=== PATIENT | female | born 1950 | race Caucasian/White ===

== ENCOUNTER 2021-02-01 22:15 | Inpatient (IN) | payer MEDICARE, OTHER ==
[~2021-02-01] VITALS: Ht 165.1 cm; Wt 102.7 kg
[2021-02-02] VITALS (49 sets, daily range): BP systolic 93–158; BP diastolic 42–92
[2021-02-02] MEDS ORDERED: PIPERACILLIN/TAZOBACTAM SOD 4.5 GM in D5W MINI-BAG PLUS 50 ML IV SCH (02:00)
[2021-02-02] MEDS ORDERED: NALOXONE INJ 0.4MG/1ML VIAL (J2310 PER 1MG) IV STA (02:49)
[2021-02-02 02:52] LABS: HEMATOCRIT 45.1 % (36.0-47.0); HEMOGLOBIN 13.9 g/dl (12.0-15.5); MEAN CORPUSCULAR HEMOGLOBIN 23.1 pg (27.0-33.0); MEAN CORPUSCULAR HGB CONC 30.8 g/dl (32.0-36.5); MEAN CORPUSCULAR VOLUME 74.9 fl (80.0-96.0); PLATELET COUNT, AUTOMATED 128 10^3/uL (150-450); RED BLOOD COUNT 6.02 10^6/uL (4.00-5.40); WHITE BLOOD COUNT 34.2 10^3/uL (4.0-10.0)
[2021-02-02] MEDS ORDERED: DICL75TA PO (02:57)
[2021-02-02] MEDS ORDERED: ZOLO100T PO (02:57)
[2021-02-02] MEDS ORDERED: TREL1AER INH (02:57)
[2021-02-02] MEDS ORDERED: IPRA0.00 INH (02:57)
[2021-02-02] MEDS ORDERED: MONT10TA97 PO (02:57)
[2021-02-02] MEDS ORDERED: CARV6.25 PO (02:57)
[2021-02-02] MEDS ORDERED: PREG50CA PO (02:57)
[2021-02-02] MEDS ORDERED: HYDR-4514 PO (02:57)
[2021-02-02 03:18] LABS: ALBUMIN 1.8 GM/DL (3.2-5.2); BILIRUBIN,TOTAL 1.1 MG/DL (0.2-1.0); CALCIUM LEVEL 7.6 MG/DL (8.8-10.2); CREATININE FOR GFR 1.24 MG/DL (0.55-1.30); GLOMERULAR FILTRATION RATE 45.4 (>39); POTASSIUM SERUM 3.5 MEQ/L (3.5-5.1); TOTAL PROTEIN 6.6 GM/DL (6.4-8.2)
[2021-02-02] MEDS: PIPERACILLIN/TAZOBACTAM SOD 4.5 GM in D5W MINI-BAG PLUS 50 ML IV SCH ×4 (03:34→21:38)
[2021-02-02] MEDS: VANCOMYCIN HCL 1,000 MG, VIAL MATE ADAPTER 1 EACH in NS 250 ML IV SCH ×2 (05:10→19:11)
[2021-02-02] MEDS: HEPARIN SOD (PORCINE) 5000UNITS/ML 1ML VIAL/SYRINGE SC SCH ×2 (05:14→14:00)
[2021-02-02] MEDS ORDERED: PHENYLEPHRINE 10MG/ML 1ML VIAL (J2370 PER 1) As Ordered ONE (07:21)
[2021-02-02] MEDS ORDERED: PHENYLephrine 500MCG 5ML (100MCG/ML) SYRINGE As Ordered ONE (07:21)
[2021-02-02] MEDS ORDERED: SODIUM CHLORIDE 0.9% 1000ML IV SCH (07:35)
[2021-02-02] MEDS ORDERED: ONDANSETRON 4MG/2ML VIAL As Ordered ONE (07:37)
[2021-02-02] MEDS ORDERED: propofoL 200 MG/20 ML VIAL As Ordered ONE (07:37)
[2021-02-02] MEDS ORDERED: ROCURONIUM BROMIDE 50 MG/5 ML VIAL As Ordered ONE (07:37)
[2021-02-02] MEDS ORDERED: ETOMIDATE INJ 20MG/10ML VIAL As Ordered ONE ×2 (07:37→11:36)
[2021-02-02] MEDS ORDERED: VASOPRESSIN INJ 20 UNITS/ML VIAL As Ordered ONE ×2 (07:37→12:32)
[2021-02-02] MEDS ORDERED: ePHEDrine SULFATE 25 MG/5 ML(5MG/ML) SYRINGE As Ordered ONE (07:43)
[2021-02-02] MEDS ORDERED: ESMOLOL INJ 100MG/10ML VIAL As Ordered ONE ×2 (07:59→09:39)
[2021-02-02] MEDS ORDERED: fentaNYL 100 MCG/2 ML INJECTION (J3010) As Ordered ONE (08:31)
[2021-02-02] MEDS ORDERED: MED NOTE (08:45)
[2021-02-02] MEDS ORDERED: HOME MED LIST COMPLETE! XX SCH (08:50)
[2021-02-02] MEDS ORDERED: SUGAMMADEX SODIUM 500 MG/5 ML VIAL (BRIDION) As Ordered ONE (08:50)
[2021-02-02] MEDS: CHLORHEXIDINE GLUCONATE 0.12 % 15ML UDC (PERIDEX ORAL RINSE) MT SCH ×2 (09:00→20:38)
[2021-02-02] MEDS ORDERED: NS 1,000 ML IV SCH (09:30)
[2021-02-02] MEDS ORDERED: MORPHINE 2 MG/ML 1ML VIAL (J2270) IV PRN (09:30)
[2021-02-02] MEDS: ESMOLOL INJ 100MG/10ML VIAL IV PRN ×4 (09:45→10:28)
[2021-02-02] MEDS ORDERED: ONDANSETRON 4MG/2ML VIAL IV PRN (09:50)
[2021-02-02] MEDS ORDERED: LR 1,000 ML IV SCH (09:50)
[2021-02-02] MEDS ORDERED: LEVALBUTEROL 1.25 MG/0.5 ML CONCENTRATE NEB INH ONE (09:55)
[2021-02-02] MEDS: fentaNYL 100 MCG/2 ML INJECTION (J3010) IV PRN ×9 (10:00→23:39)
[2021-02-02] MEDS: PHENYLephrine 500MCG 5ML (100MCG/ML) SYRINGE IV PRN ×2 (10:02→10:07)
[2021-02-02] MEDS ORDERED: PHENYLEPHRINE HCL INJ 10 MG in D5W 99 ML IV SCH (10:35)
[2021-02-02] MEDS ORDERED: SODIUM BICARBONATE 8.4% INJ 50 ML SYRINGE As Ordered ONE (11:35)
[2021-02-02] MEDS ORDERED: NOREPINEPHRINE 4 MG/4 ML AMP As Ordered ONE (11:50)
[2021-02-02] MEDS ORDERED: MIDAZOLAM INJ 2MG/2ML VIAL (J2250 PER 1MG) As Ordered ONE (12:03)
[2021-02-02 12:06] LABS: ABG BASE EXCESS -0.4 (-2.0-2.0); ABG HCO3 25.7 MEQ/L (22.0-26.0); ABG O2 SATURATION 99.3 % (95.0-99.0); ABG PARTIAL PRESSURE CO2 48.2 mmHg (35.0-45.0); ABG PARTIAL PRESSURE O2 239.3 mmHg (75.0-100.0); ABG STANDARD HCO3 24.2 MEQ/L (22.0-26.0); ABG TOTAL CO2 27.1 MEQ/L (23.0-31.0); ABG pH (ARTERIAL) 7.344 UNITS (7.350-7.450)
[2021-02-02] MEDS ORDERED: SODIUM BICARBONATE 8.4% INJ 50 ML SYRINGE IV ONE (12:10)
[2021-02-02] MEDS ORDERED: NOREPINEPHRINE BITARTRATE 8 MG in D5W 492 ML IV SCH (12:15)
[2021-02-02] MEDS ORDERED: SUCCINYLCHOLINE 100 MG/5 ML SYRINGE (J0330) IV ONE (12:15)
[2021-02-02] MEDS ORDERED: MIDAZOLAM INJ 2MG/2ML VIAL (J2250 PER 1MG) IV ONE ×2 (12:15→12:50)
[2021-02-02] MEDS ORDERED: ETOMIDATE INJ 20MG/10ML VIAL IV ONE (12:15)
[2021-02-02 12:45] LABS: HEMATOCRIT 34.3 % (36.0-47.0); MEAN CORPUSCULAR HEMOGLOBIN 23.4 pg (27.0-33.0); MEAN CORPUSCULAR HGB CONC 31.2 g/dl (32.0-36.5); MEAN CORPUSCULAR VOLUME 75.1 fl (80.0-96.0); PLATELET COUNT, AUTOMATED 166 10^3/uL (150-450); RED BLOOD COUNT 4.57 10^6/uL (4.00-5.40)
[2021-02-02 12:46] LABS: HEMOGLOBIN 10.7 g/dl (12.0-15.5); WHITE BLOOD COUNT 41.1 10^3/uL (4.0-10.0)
[2021-02-02] MEDS ORDERED: LACTATED RINGER'S 1000 ML IV ONE (12:55)
[2021-02-02 13:04] LABS: INR 2.58
[2021-02-02 13:16] LABS: ALBUMIN 1.2 GM/DL (3.2-5.2); ANISOCYTOSIS 2+; ATYPICAL LYMPH 4 % (0-5); BILIRUBIN,TOTAL 0.9 MG/DL (0.2-1.0); CALCIUM LEVEL 7.7 MG/DL (8.8-10.2); GLOMERULAR FILTRATION RATE 58.2 (>39); LYMPHOCYTES 8 % (16-44); MICROCYTOSIS 2+; MONOCYTES 7 % (0-5); NEUTROPHILS 78 % (28-66); PLATELET ESTIMATE NORMAL (NORMAL); POLYCHROMASIA 1+; POTASSIUM SERUM 3.7 MEQ/L (3.5-5.1); TOTAL PROTEIN 5.7 GM/DL (6.4-8.2); TOXIC VACUOLATION 1+
[2021-02-02 13:17] LABS: OVALOCYTES 1+; TOXIC GRANULATION 1+
[2021-02-02 13:18] LABS: POIKILOCYTOSIS 1+
[2021-02-02] MEDS: MIDAZOLAM INJ 2MG/2ML VIAL (J2250 PER 1MG) IV PRN ×4 (13:27→17:45)
[2021-02-02] MEDS ORDERED: PHYTONADIONE 5 MG TAB PO ONE (14:15)
[2021-02-02] MEDS ORDERED: propofoL 1,000 MG in IV 1 EA IV SCH (14:15)
[2021-02-02] MEDS: PANTOPRAZOLE 40MG VIAL (C9113 PER 1) IV SCH (14:53)
[2021-02-02 15:30] LABS: MAGNESIUM LEVEL 2.1 MG/DL (1.8-2.4)
[2021-02-02 15:33] LABS: ABG BASE EXCESS -6.6 (-2.0-2.0); ABG HCO3 18.7 MEQ/L (22.0-26.0); ABG O2 SATURATION 99.3 % (95.0-99.0); ABG PARTIAL PRESSURE CO2 36.5 mmHg (35.0-45.0); ABG PARTIAL PRESSURE O2 188.6 mmHg (75.0-100.0); ABG STANDARD HCO3 19.1 MEQ/L (22.0-26.0); ABG TOTAL CO2 19.8 MEQ/L (23.0-31.0); ABG pH (ARTERIAL) 7.328 UNITS (7.350-7.450)
[2021-02-02] MEDS ORDERED: D5W/LR 1,000 ML IV SCH (15:40)
[2021-02-02] MEDS ORDERED: REFRIGERATOR IV KEYS XX PRN (15:40)
[2021-02-02] MEDS ORDERED: AMIODARONE HCL 150 MG in IV 1 EA IV ONE (15:40)
[2021-02-02] MEDS ORDERED: SUCCINYLCHOLINE 100 MG/5 ML SYRINGE (J0330) ONE (15:41)
[2021-02-02] MEDS ORDERED: LEVALBUTEROL 1.25 MG/0.5 ML CONCENTRATE NEB ONE (15:41)
[2021-02-02] MEDS ORDERED: PHENYLEPHRINE 10MG/ML 1ML VIAL (J2370 PER 1) ONE (15:41)
[2021-02-02] MEDS ORDERED: PHENYLephrine 500MCG 5ML (100MCG/ML) SYRINGE ONE (15:41)
[2021-02-02] MEDS ORDERED: AMIODARONE HCL 360 MG in IV 1 EA IV SCH (16:00)
[2021-02-02] MEDS: MIDAZOLAM HCL 100 MG in D5W 80 ML IV SCH (17:03)
[2021-02-02] MEDS: D5W/0.45% SODIUM CHLORIDE 1,000 ML IV SCH (17:34)
[2021-02-02] MEDS ORDERED: POTASSIUM CHLORIDE 10% LIQ 20 MEQ/15 ML UDC PO ONE (19:55)
[2021-02-02] MEDS: VASOPRESSIN INJ 20 UNITS in NS 499 ML IV SCH (20:38)
[2021-02-02] MEDS: NOREPINEPHRINE BITARTRATE 8 MG in D5W 492 ML IV SCH (21:35)
[2021-02-02] MEDS: AMIODARONE HCL 360 MG in IV 1 EA IV SCH (23:31)
[2021-02-03] VITALS (96 sets, daily range): BP systolic 126–167; BP diastolic 35–59
[2021-02-03] MEDS: LEVALBUTEROL HFA 45MCG/ACT 15 GM INHALER INH SCH ×4 (03:05→20:04)
[2021-02-03] MEDS: PIPERACILLIN/TAZOBACTAM SOD 4.5 GM in D5W MINI-BAG PLUS 50 ML IV SCH ×4 (03:14→22:28)
[2021-02-03] MEDS: MIDAZOLAM HCL 100 MG in D5W 80 ML IV SCH ×2 (03:34→18:26)
[2021-02-03] MEDS: NOREPINEPHRINE BITARTRATE 8 MG in D5W 492 ML IV SCH ×6 (04:10→17:25)
[2021-02-03] MEDS: VASOPRESSIN INJ 20 UNITS in NS 499 ML IV SCH ×3 (04:11→19:39)
[2021-02-03 04:19] LABS: BASO # 0.1 10^3/uL (0.0-0.2); BASO % 0.3 % (0.0-1.0); EOS # 0.1 10^3/uL (0.0-0.5); EOS % 0.1 % (0.0-3.0); HEMATOCRIT 32.1 % (36.0-47.0); HEMOGLOBIN 10.2 g/dl (12.0-15.5); LYMPH # 3.4 10^3/uL (1.5-5.0); LYMPH % 9.7 % (24.0-44.0); MEAN CORPUSCULAR HEMOGLOBIN 23.6 pg (27.0-33.0); MEAN CORPUSCULAR HGB CONC 31.8 g/dl (32.0-36.5); MEAN CORPUSCULAR VOLUME 74.1 fl (80.0-96.0); MONO # 1.2 10^3/uL (0.0-0.8); MONO % 3.3 % (2.0-8.0); NEUTROPHILS # 29.4 10^3/uL (1.5-8.5); NEUTROPHILS % 83.7 % (36.0-66.0); PLATELET COUNT, AUTOMATED 184 10^3/uL (150-450); RED BLOOD COUNT 4.33 10^6/uL (4.00-5.40)
[2021-02-03 04:25] LABS: WHITE BLOOD COUNT 35.2 10^3/uL (4.0-10.0)
[2021-02-03] MEDS: fentaNYL 100 MCG/2 ML INJECTION (J3010) IV PRN ×2 (04:27→19:08)
[2021-02-03 04:29] LABS: INR 1.65; PROTHROMBIN TIME 19.9 SECONDS (12.7-14.5)
[2021-02-03 04:38] LABS: CALCIUM LEVEL 6.7 MG/DL (8.8-10.2); CREATININE FOR GFR 1.1 MG/DL (0.55-1.30); GLOMERULAR FILTRATION RATE 52.1 (>39); POTASSIUM SERUM 3.7 MEQ/L (3.5-5.1)
[2021-02-03] MEDS: VANCOMYCIN HCL 1,000 MG, VIAL MATE ADAPTER 1 EACH in NS 250 ML IV SCH ×2 (05:46→18:26)
[2021-02-03] MEDS: HumaLOG INSULIN (NovoLOG) PER UNIT SC SCH ×3 (06:00→17:32)
[2021-02-03 06:41] LABS: ABG BASE EXCESS -3.5 (-2.0-2.0); ABG HCO3 21.3 MEQ/L (22.0-26.0); ABG PARTIAL PRESSURE CO2 37.5 mmHg (35.0-45.0); ABG PARTIAL PRESSURE O2 147.7 mmHg (75.0-100.0); ABG STANDARD HCO3 21.6 MEQ/L (22.0-26.0); ABG TOTAL CO2 22.4 MEQ/L (23.0-31.0); ABG pH (ARTERIAL) 7.372 UNITS (7.350-7.450)
[2021-02-03] MEDS: PANTOPRAZOLE 40MG VIAL (C9113 PER 1) IV SCH (08:46)
[2021-02-03] MEDS: CHLORHEXIDINE GLUCONATE 0.12 % 15ML UDC (PERIDEX ORAL RINSE) MT SCH ×2 (08:46→22:28)
[2021-02-03] MEDS ORDERED: GLUCOSE 4GM CHEW TABLET PO PRN (08:50)
[2021-02-03] MEDS ORDERED: GLUCAGON INJ 1MG VIAL SC PRN (08:50)
[2021-02-03] MEDS ORDERED: DEXTROSE 50% 50 ML SYRINGE IV PRN (08:50)
[2021-02-03] MEDS: AMIODARONE HCL 360 MG in IV 1 EA IV SCH (10:09)
[2021-02-03] MEDS: CLINDAMYCIN 900 MG in IV 1 EA IV SCH ×2 (11:42→18:33)
[2021-02-03] MEDS ORDERED: PHYTONADIONE 5 MG TAB PO ONE (12:30)
[2021-02-03] MEDS: HEPARIN SOD (PORCINE) 5000UNITS/ML 1ML VIAL/SYRINGE SC SCH ×2 (14:09→22:28)
[2021-02-03] MEDS: D5W/0.45% SODIUM CHLORIDE 1,000 ML IV SCH (17:27)
[2021-02-04] VITALS (54 sets, daily range): BP systolic 112–168; BP diastolic 40–76
[2021-02-04] MEDS: NOREPINEPHRINE BITARTRATE 8 MG in D5W 492 ML IV SCH ×3 (01:10→18:35)
[2021-02-04] MEDS: LEVALBUTEROL HFA 45MCG/ACT 15 GM INHALER INH SCH ×4 (01:17→19:26)
[2021-02-04] MEDS: CLINDAMYCIN 900 MG in IV 1 EA IV SCH ×3 (03:28→18:34)
[2021-02-04] MEDS: VASOPRESSIN INJ 20 UNITS in NS 499 ML IV SCH ×3 (03:28→18:37)
[2021-02-04] MEDS: PIPERACILLIN/TAZOBACTAM SOD 4.5 GM in D5W MINI-BAG PLUS 50 ML IV SCH ×4 (04:53→21:07)
[2021-02-04 05:32] LABS: ABG BASE EXCESS -4.1 (-2.0-2.0); ABG HCO3 19.6 MEQ/L (22.0-26.0); ABG O2 SATURATION 97.8 % (95.0-99.0); ABG PARTIAL PRESSURE CO2 31.1 mmHg (35.0-45.0); ABG PARTIAL PRESSURE O2 100.3 mmHg (75.0-100.0); ABG STANDARD HCO3 21.1 MEQ/L (22.0-26.0); ABG TOTAL CO2 20.6 MEQ/L (23.0-31.0); ABG pH (ARTERIAL) 7.418 UNITS (7.350-7.450); BASO # 0.1 10^3/uL (0.0-0.2); BASO % 0.3 % (0.0-1.0); EOS # 0.1 10^3/uL (0.0-0.5); EOS % 0.2 % (0.0-3.0); HEMATOCRIT 29.1 % (36.0-47.0); LYMPH # 3.4 10^3/uL (1.5-5.0); LYMPH % 9.4 % (24.0-44.0); MEAN CORPUSCULAR HEMOGLOBIN 23.3 pg (27.0-33.0); MEAN CORPUSCULAR HGB CONC 30.9 g/dl (32.0-36.5); MEAN CORPUSCULAR VOLUME 75.4 fl (80.0-96.0); MONO % 2.8 % (2.0-8.0); NEUTROPHILS # 30.6 10^3/uL (1.5-8.5); NEUTROPHILS % 84.5 % (36.0-66.0); PLATELET COUNT, AUTOMATED 144 10^3/uL (150-450); RED BLOOD COUNT 3.86 10^6/uL (4.00-5.40)
[2021-02-04 05:36] LABS: WHITE BLOOD COUNT 36.2 10^3/uL (4.0-10.0)
[2021-02-04 05:54] LABS: CALCIUM LEVEL 6.3 MG/DL (8.8-10.2); CREATININE FOR GFR 1.01 MG/DL (0.55-1.30); GLOMERULAR FILTRATION RATE 57.5 (>39); POTASSIUM SERUM 3.3 MEQ/L (3.5-5.1)
[2021-02-04] MEDS: HumaLOG INSULIN (NovoLOG) PER UNIT SC SCH ×5 (06:00→23:52)
[2021-02-04] MEDS: VANCOMYCIN HCL 1,000 MG, VIAL MATE ADAPTER 1 EACH in NS 250 ML IV SCH (06:20)
[2021-02-04] MEDS: HEPARIN SOD (PORCINE) 5000UNITS/ML 1ML VIAL/SYRINGE SC SCH ×3 (06:20→21:08)
[2021-02-04] MEDS: PANTOPRAZOLE 40MG VIAL (C9113 PER 1) IV SCH (09:50)
[2021-02-04] MEDS: CHLORHEXIDINE GLUCONATE 0.12 % 15ML UDC (PERIDEX ORAL RINSE) MT SCH ×2 (09:50→21:07)
[2021-02-04] MEDS: KCL 20MEQ IN 100ML SWI (KRUN) 20 MEQ in IV 1 EA IV SCH ×4 (09:52→11:38)
[2021-02-04] MEDS: fentaNYL 100 MCG/2 ML INJECTION (J3010) IV PRN (09:52)
[2021-02-04 11:17] LABS: CLOSTRIDIUM DIFFICILE PCR NEGATIVE (NEGATIVE)
[2021-02-04 12:16] LABS: ABG BASE EXCESS -2.7 (-2.0-2.0); ABG HCO3 20.9 MEQ/L (22.0-26.0); ABG O2 SATURATION 98.4 % (95.0-99.0); ABG PARTIAL PRESSURE CO2 31.5 mmHg (35.0-45.0); ABG PARTIAL PRESSURE O2 115.3 mmHg (75.0-100.0); ABG STANDARD HCO3 22.2 MEQ/L (22.0-26.0); ABG TOTAL CO2 21.9 MEQ/L (23.0-31.0)
[2021-02-04] MEDS ORDERED: MIDAZOLAM INJ 2MG/2ML VIAL (J2250 PER 1MG) IV ONE (12:45)
[2021-02-04] MEDS ORDERED: fentaNYL 100 MCG/2 ML INJECTION (J3010) IV ONE (12:45)
[2021-02-04] MEDS ORDERED: LACTATED RINGER'S 1000 ML IV ONE (14:00)
[2021-02-04] MEDS ORDERED: ISOVUE-370 76% 100ML VIAL As Ordered ONE (15:39)
[2021-02-05] VITALS (56 sets, daily range): BP systolic 117–145; BP diastolic 41–54
[2021-02-05] MEDS: NOREPINEPHRINE BITARTRATE 8 MG in D5W 492 ML IV SCH ×3 (01:24→18:00)
[2021-02-05] MEDS: LEVALBUTEROL HFA 45MCG/ACT 15 GM INHALER INH SCH ×4 (01:25→19:44)
[2021-02-05] MEDS: VASOPRESSIN INJ 20 UNITS in NS 499 ML IV SCH ×3 (02:05→17:52)
[2021-02-05] MEDS: CLINDAMYCIN 900 MG in IV 1 EA IV SCH ×3 (02:21→18:17)
[2021-02-05 04:19] LABS: BASO # 0.1 10^3/uL (0.0-0.2); BASO % 0.2 % (0.0-1.0); EOS # 0.2 10^3/uL (0.0-0.5); EOS % 0.7 % (0.0-3.0); HEMATOCRIT 25.7 % (36.0-47.0); HEMOGLOBIN 7.9 g/dl (12.0-15.5); LYMPH # 2.4 10^3/uL (1.5-5.0); LYMPH % 8.1 % (24.0-44.0); MEAN CORPUSCULAR HEMOGLOBIN 23.4 pg (27.0-33.0); MEAN CORPUSCULAR HGB CONC 30.7 g/dl (32.0-36.5); MEAN CORPUSCULAR VOLUME 76.3 fl (80.0-96.0); MONO # 0.8 10^3/uL (0.0-0.8); MONO % 2.5 % (2.0-8.0); NEUTROPHILS # 25.8 10^3/uL (1.5-8.5); NEUTROPHILS % 85.7 % (36.0-66.0); PLATELET COUNT, AUTOMATED 121 10^3/uL (150-450); RED BLOOD COUNT 3.37 10^6/uL (4.00-5.40)
[2021-02-05 04:19] LABS: ABG BASE EXCESS -4.4 (-2.0-2.0); ABG HCO3 19.3 MEQ/L (22.0-26.0); ABG O2 SATURATION 98.3 % (95.0-99.0); ABG PARTIAL PRESSURE CO2 30.1 mmHg (35.0-45.0); ABG PARTIAL PRESSURE O2 119.3 mmHg (75.0-100.0); ABG STANDARD HCO3 20.8 MEQ/L (22.0-26.0); ABG TOTAL CO2 20.2 MEQ/L (23.0-31.0); ABG pH (ARTERIAL) 7.425 UNITS (7.350-7.450)
[2021-02-05] MEDS: PIPERACILLIN/TAZOBACTAM SOD 4.5 GM in D5W MINI-BAG PLUS 50 ML IV SCH ×4 (04:21→21:01)
[2021-02-05 04:23] LABS: WHITE BLOOD COUNT 30.1 10^3/uL (4.0-10.0)
[2021-02-05 04:38] LABS: ALBUMIN 1.1 GM/DL (3.2-5.2); ALT/SGPT 16 U/L (12-78); BILIRUBIN,TOTAL 1.1 MG/DL (0.2-1.0); BLOOD UREA NITROGEN 26 MG/DL (7-18); CALCIUM LEVEL 6.4 MG/DL (8.8-10.2); CARBON DIOXIDE LEVEL 24 MEQ/L (21-32); CHLORIDE LEVEL 115 MEQ/L (98-107); CREATININE FOR GFR 0.86 MG/DL (0.55-1.30); GLOMERULAR FILTRATION RATE > 60.0 (>39); GLUCOSE, FASTING 133 MG/DL (70-100); MAGNESIUM LEVEL 1.9 MG/DL (1.8-2.4); PHOSPHORUS LEVEL 2.5 MG/DL (2.5-4.9); POTASSIUM SERUM 3.2 MEQ/L (3.5-5.1); SODIUM LEVEL 146 MEQ/L (136-145); TOTAL PROTEIN 5.2 GM/DL (6.4-8.2)
[2021-02-05] MEDS ORDERED: POTASSIUM CHLORIDE 10% LIQ 20 MEQ/15 ML UDC PO ONE ×2 (05:10→09:00)
[2021-02-05] MEDS: HumaLOG INSULIN (NovoLOG) PER UNIT SC SCH ×4 (06:00→23:33)
[2021-02-05] MEDS: HEPARIN SOD (PORCINE) 5000UNITS/ML 1ML VIAL/SYRINGE SC SCH ×3 (06:01→21:01)
[2021-02-05] MEDS: PANTOPRAZOLE 40MG VIAL (C9113 PER 1) IV SCH (09:44)
[2021-02-05] MEDS: CHLORHEXIDINE GLUCONATE 0.12 % 15ML UDC (PERIDEX ORAL RINSE) MT SCH ×2 (09:44→21:00)
[2021-02-05] MEDS ORDERED: LACTATED RINGER'S 1000 ML IV ONE (10:50)
[2021-02-06] VITALS (59 sets, daily range): BP systolic 106–151; BP diastolic 35–65
[2021-02-06] MEDS: LEVALBUTEROL HFA 45MCG/ACT 15 GM INHALER INH SCH ×4 (01:32→20:03)
[2021-02-06] MEDS: CLINDAMYCIN 900 MG in IV 1 EA IV SCH ×3 (02:20→18:08)
[2021-02-06] MEDS: VASOPRESSIN INJ 20 UNITS in NS 499 ML IV SCH ×3 (02:20→20:20)
[2021-02-06] MEDS: PIPERACILLIN/TAZOBACTAM SOD 4.5 GM in D5W MINI-BAG PLUS 50 ML IV SCH ×4 (03:44→21:12)
[2021-02-06 04:19] LABS: BASO % 0.2 % (0.0-1.0); EOS # 0.2 10^3/uL (0.0-0.5); EOS % 1.1 % (0.0-3.0); HEMATOCRIT 22.5 % (36.0-47.0); LYMPH # 1.6 10^3/uL (1.5-5.0); LYMPH % 7.5 % (24.0-44.0); MEAN CORPUSCULAR HEMOGLOBIN 23.8 pg (27.0-33.0); MEAN CORPUSCULAR HGB CONC 30.7 g/dl (32.0-36.5); MEAN CORPUSCULAR VOLUME 77.6 fl (80.0-96.0); MONO # 0.6 10^3/uL (0.0-0.8); MONO % 2.6 % (2.0-8.0); NEUTROPHILS # 18.5 10^3/uL (1.5-8.5); NEUTROPHILS % 86.6 % (36.0-66.0); PLATELET COUNT, AUTOMATED 114 10^3/uL (150-450); WHITE BLOOD COUNT 21.3 10^3/uL (4.0-10.0)
[2021-02-06 04:20] LABS: HEMOGLOBIN 6.9 g/dl (12.0-15.5)
[2021-02-06 04:35] LABS: ALBUMIN 1.1 GM/DL (3.2-5.2); ALT/SGPT 13 U/L (12-78); BILIRUBIN,TOTAL 0.8 MG/DL (0.2-1.0); BLOOD UREA NITROGEN 18 MG/DL (7-18); CALCIUM LEVEL 6.2 MG/DL (8.8-10.2); CARBON DIOXIDE LEVEL 23 MEQ/L (21-32); CHLORIDE LEVEL 120 MEQ/L (98-107); GLOMERULAR FILTRATION RATE > 60.0 (>39); GLUCOSE, FASTING 134 MG/DL (70-100); MAGNESIUM LEVEL 1.9 MG/DL (1.8-2.4); POTASSIUM SERUM 3.1 MEQ/L (3.5-5.1); SODIUM LEVEL 150 MEQ/L (136-145); TOTAL PROTEIN 5.1 GM/DL (6.4-8.2)
[2021-02-06] MEDS ORDERED: POTASSIUM CHLORIDE 10% LIQ 20 MEQ/15 ML UDC PO ONE ×3 (04:45→17:15)
[2021-02-06] MEDS: ACETAMINOPHEN 325 MG/10.15 ML UDC NG PRN ×3 (05:14→10:08)
[2021-02-06] MEDS: HEPARIN SOD (PORCINE) 5000UNITS/ML 1ML VIAL/SYRINGE SC SCH ×3 (05:14→21:13)
[2021-02-06] MEDS: HumaLOG INSULIN (NovoLOG) PER UNIT SC SCH ×4 (05:16→23:48)
[2021-02-06 05:23] LABS: HEMATOCRIT 22.2 % (36.0-47.0)
[2021-02-06 05:25] LABS: HEMOGLOBIN 6.8 g/dl (12.0-15.5)
[2021-02-06 06:02] LABS: ABG BASE EXCESS -1.7 (-2.0-2.0); ABG HCO3 22.6 MEQ/L (22.0-26.0); ABG PARTIAL PRESSURE CO2 35.5 mmHg (35.0-45.0); ABG PARTIAL PRESSURE O2 139.1 mmHg (75.0-100.0); ABG STANDARD HCO3 23.1 MEQ/L (22.0-26.0); ABG TOTAL CO2 23.7 MEQ/L (23.0-31.0); ABG pH (ARTERIAL) 7.421 UNITS (7.350-7.450)
[2021-02-06] MEDS: SYMBICORT 80/4.5MCG INHALER 6GM INH SCH ×2 (08:00→20:03)
[2021-02-06] MEDS: CHLORHEXIDINE GLUCONATE 0.12 % 15ML UDC (PERIDEX ORAL RINSE) MT SCH ×2 (08:02→21:13)
[2021-02-06] MEDS: PANTOPRAZOLE 40MG VIAL (C9113 PER 1) IV SCH (08:02)
[2021-02-06] MEDS: D5W 1,000 ML IV SCH ×3 (09:14→23:48)
[2021-02-06] MEDS: NOREPINEPHRINE BITARTRATE 8 MG in D5W 492 ML IV SCH (09:39)
[2021-02-06] MEDS: LACRILUBE (AKWA TEARS) OPHTH OINT 3.5 GM OU PRN (12:28)
[2021-02-06 16:56] LABS: BLOOD UREA NITROGEN 15 MG/DL (7-18); CALCIUM LEVEL 6.7 MG/DL (8.8-10.2); CARBON DIOXIDE LEVEL 22 MEQ/L (21-32); CHLORIDE LEVEL 121 MEQ/L (98-107); CREATININE FOR GFR 0.82 MG/DL (0.55-1.30); GLOMERULAR FILTRATION RATE > 60.0 (>39); GLUCOSE, FASTING 151 MG/DL (70-100); POTASSIUM SERUM 3.4 MEQ/L (3.5-5.1); SODIUM LEVEL 150 MEQ/L (136-145)
[2021-02-06] MEDS ORDERED: fentaNYL 100 MCG/2 ML INJECTION (J3010) IV ONE (17:10)
[2021-02-07] VITALS (31 sets, daily range): BP systolic 115–141; BP diastolic 42–52
[2021-02-07] MEDS: LEVALBUTEROL HFA 45MCG/ACT 15 GM INHALER INH SCH ×4 (01:09→20:02)
[2021-02-07] MEDS: CLINDAMYCIN 900 MG in IV 1 EA IV SCH ×2 (02:43→11:22)
[2021-02-07] MEDS: PIPERACILLIN/TAZOBACTAM SOD 4.5 GM in D5W MINI-BAG PLUS 50 ML IV SCH ×4 (03:48→21:15)
[2021-02-07 04:16] LABS: BASO # 0.1 10^3/uL (0.0-0.2); BASO % 0.3 % (0.0-1.0); EOS # 0.3 10^3/uL (0.0-0.5); EOS % 1.5 % (0.0-3.0); HEMOGLOBIN 8.4 g/dl (12.0-15.5); LYMPH # 1.6 10^3/uL (1.5-5.0); LYMPH % 8.1 % (24.0-44.0); MEAN CORPUSCULAR HEMOGLOBIN 25.1 pg (27.0-33.0); MEAN CORPUSCULAR HGB CONC 31.1 g/dl (32.0-36.5); MEAN CORPUSCULAR VOLUME 80.8 fl (80.0-96.0); MONO # 0.6 10^3/uL (0.0-0.8); NEUTROPHILS # 16.9 10^3/uL (1.5-8.5); NEUTROPHILS % 85.6 % (36.0-66.0); PLATELET COUNT, AUTOMATED 154 10^3/uL (150-450); RED BLOOD COUNT 3.34 10^6/uL (4.00-5.40); WHITE BLOOD COUNT 19.7 10^3/uL (4.0-10.0)
[2021-02-07] MEDS: VASOPRESSIN INJ 20 UNITS in NS 499 ML IV SCH (04:40)
[2021-02-07 04:53] LABS: ALBUMIN 1.2 GM/DL (3.2-5.2); ALT/SGPT 12 U/L (12-78); BILIRUBIN,TOTAL 0.7 MG/DL (0.2-1.0); BLOOD UREA NITROGEN 13 MG/DL (7-18); CALCIUM LEVEL 6.6 MG/DL (8.8-10.2); CARBON DIOXIDE LEVEL 23 MEQ/L (21-32); CHLORIDE LEVEL 120 MEQ/L (98-107); CREATININE FOR GFR 0.71 MG/DL (0.55-1.30); GLOMERULAR FILTRATION RATE > 60.0 (>39); GLUCOSE, FASTING 117 MG/DL (70-100); PHOSPHORUS LEVEL 1.8 MG/DL (2.5-4.9); POTASSIUM SERUM 3.9 MEQ/L (3.5-5.1); SODIUM LEVEL 152 MEQ/L (136-145); TOTAL PROTEIN 5.4 GM/DL (6.4-8.2)
[2021-02-07] MEDS: HumaLOG INSULIN (NovoLOG) PER UNIT SC SCH ×4 (05:13→23:44)
[2021-02-07] MEDS: HEPARIN SOD (PORCINE) 5000UNITS/ML 1ML VIAL/SYRINGE SC SCH ×3 (05:13→21:15)
[2021-02-07 05:57] LABS: ABG BASE EXCESS -0.2 (-2.0-2.0); ABG HCO3 23.2 MEQ/L (22.0-26.0); ABG O2 SATURATION 94.6 % (95.0-99.0); ABG PARTIAL PRESSURE CO2 32.8 mmHg (35.0-45.0); ABG PARTIAL PRESSURE O2 69.8 mmHg (75.0-100.0); ABG STANDARD HCO3 24.3 MEQ/L (22.0-26.0); ABG TOTAL CO2 24.2 MEQ/L (23.0-31.0); ABG pH (ARTERIAL) 7.468 UNITS (7.350-7.450)
[2021-02-07] MEDS: SYMBICORT 80/4.5MCG INHALER 6GM INH SCH ×2 (08:20→20:02)
[2021-02-07] MEDS ORDERED: NEUTRA-PHOS 1.5 GM PACKET PO ONE (09:00)
[2021-02-07] MEDS: PANTOPRAZOLE 40MG VIAL (C9113 PER 1) IV SCH (09:54)
[2021-02-07] MEDS: CHLORHEXIDINE GLUCONATE 0.12 % 15ML UDC (PERIDEX ORAL RINSE) MT SCH ×2 (09:54→21:14)
[2021-02-07] MEDS: D5W 1,000 ML IV SCH ×3 (09:54→20:15)
[2021-02-07 17:31] LABS: BLOOD UREA NITROGEN 10 MG/DL (7-18); CALCIUM LEVEL 6.9 MG/DL (8.8-10.2); CARBON DIOXIDE LEVEL 24 MEQ/L (21-32); CHLORIDE LEVEL 116 MEQ/L (98-107); CREATININE FOR GFR 0.69 MG/DL (0.55-1.30); GLOMERULAR FILTRATION RATE > 60.0 (>39); GLUCOSE, FASTING 126 MG/DL (70-100); POTASSIUM SERUM 3.4 MEQ/L (3.5-5.1); SODIUM LEVEL 145 MEQ/L (136-145)
[2021-02-07] MEDS ORDERED: KCL 20MEQ IN 100ML SWI (KRUN) 20 MEQ in IV 1 EA IV ONE ×2 (18:00)
[2021-02-07] MEDS: MIDAZOLAM INJ 2MG/2ML VIAL (J2250 PER 1MG) IV PRN (23:56)
[2021-02-08] VITALS (26 sets, daily range): BP systolic 88–181; BP diastolic 31–70
[2021-02-08] MEDS: IPRATROPIUM 0.5MG/ALBUTEROL 2.5MG INH SOL UD 3ML (DUONEB) NEB PRN ×2 (00:23→08:21)
[2021-02-08] MEDS: MIDAZOLAM INJ 2MG/2ML VIAL (J2250 PER 1MG) IV PRN ×6 (00:34→18:33)
[2021-02-08] MEDS: LEVALBUTEROL HFA 45MCG/ACT 15 GM INHALER INH SCH ×4 (01:15→19:58)
[2021-02-08] MEDS: PIPERACILLIN/TAZOBACTAM SOD 4.5 GM in D5W MINI-BAG PLUS 50 ML IV SCH ×4 (03:32→20:44)
[2021-02-08 05:03] LABS: BASO # 0.1 10^3/uL (0.0-0.2); BASO % 0.3 % (0.0-1.0); EOS # 0.3 10^3/uL (0.0-0.5); EOS % 1.9 % (0.0-3.0); HEMATOCRIT 27.7 % (36.0-47.0); HEMOGLOBIN 8.4 g/dl (12.0-15.5); LYMPH # 1.6 10^3/uL (1.5-5.0); LYMPH % 9.5 % (24.0-44.0); MEAN CORPUSCULAR HGB CONC 30.3 g/dl (32.0-36.5); MEAN CORPUSCULAR VOLUME 82.4 fl (80.0-96.0); MONO # 0.7 10^3/uL (0.0-0.8); MONO % 4.2 % (2.0-8.0); NEUTROPHILS # 13.8 10^3/uL (1.5-8.5); PLATELET COUNT, AUTOMATED 205 10^3/uL (150-450); RED BLOOD COUNT 3.36 10^6/uL (4.00-5.40); WHITE BLOOD COUNT 16.6 10^3/uL (4.0-10.0)
[2021-02-08 05:30] LABS: ALBUMIN 1.1 GM/DL (3.2-5.2); ALT/SGPT 11 U/L (12-78); BILIRUBIN,TOTAL 0.7 MG/DL (0.2-1.0); BLOOD UREA NITROGEN 9 MG/DL (7-18); C REACTIVE PROTEIN QUANTITATIV 3.58 MG/DL (0.00-0.30); CALCIUM LEVEL 6.6 MG/DL (8.8-10.2); CARBON DIOXIDE LEVEL 25 MEQ/L (21-32); CHLORIDE LEVEL 115 MEQ/L (98-107); CREATININE FOR GFR 0.71 MG/DL (0.55-1.30); GLOMERULAR FILTRATION RATE > 60.0 (>39); GLUCOSE, FASTING 107 MG/DL (70-100); MAGNESIUM LEVEL 1.8 MG/DL (1.8-2.4); PHOSPHORUS LEVEL 2.1 MG/DL (2.5-4.9); POTASSIUM SERUM 3.6 MEQ/L (3.5-5.1); SODIUM LEVEL 146 MEQ/L (136-145); TOTAL PROTEIN 5.4 GM/DL (6.4-8.2)
[2021-02-08] MEDS: HEPARIN SOD (PORCINE) 5000UNITS/ML 1ML VIAL/SYRINGE SC SCH ×3 (05:57→20:57)
[2021-02-08] MEDS: HumaLOG INSULIN (NovoLOG) PER UNIT SC SCH ×3 (06:00→18:00)
[2021-02-08 06:20] LABS: ABG BASE EXCESS -0.7 (-2.0-2.0); ABG HCO3 22.6 MEQ/L (22.0-26.0); ABG O2 SATURATION 97.6 % (95.0-99.0); ABG PARTIAL PRESSURE CO2 32.2 mmHg (35.0-45.0); ABG STANDARD HCO3 23.9 MEQ/L (22.0-26.0); ABG TOTAL CO2 23.6 MEQ/L (23.0-31.0); ABG pH (ARTERIAL) 7.464 UNITS (7.350-7.450)
[2021-02-08] MEDS: SYMBICORT 80/4.5MCG INHALER 6GM INH SCH ×2 (08:00→19:57)
[2021-02-08] MEDS ORDERED: fentaNYL 100 MCG/2 ML INJECTION (J3010) IV ONE (08:30)
[2021-02-08] MEDS: CHLORHEXIDINE GLUCONATE 0.12 % 15ML UDC (PERIDEX ORAL RINSE) MT SCH ×2 (08:51→20:57)
[2021-02-08] MEDS: PANTOPRAZOLE 40MG VIAL (C9113 PER 1) IV SCH (08:51)
[2021-02-08] MEDS: D5W 1,000 ML IV SCH ×2 (08:52→16:10)
[2021-02-08] MEDS: fentaNYL 100 MCG/2 ML INJECTION (J3010) IV PRN (08:58)
[2021-02-08] MEDS ORDERED: ROCURONIUM BROMIDE 50 MG/5 ML VIAL As Ordered ONE (13:03)
[2021-02-08] MEDS ORDERED: fentaNYL 100 MCG/2 ML INJECTION (J3010) As Ordered ONE (13:03)
[2021-02-08] MEDS ORDERED: propofoL 200 MG/20 ML VIAL As Ordered ONE (13:03)
[2021-02-08 16:57] LABS: BLOOD UREA NITROGEN 9 MG/DL (7-18); CALCIUM LEVEL 6.9 MG/DL (8.8-10.2); CARBON DIOXIDE LEVEL 25 MEQ/L (21-32); CHLORIDE LEVEL 114 MEQ/L (98-107); CREATININE FOR GFR 0.69 MG/DL (0.55-1.30); GLOMERULAR FILTRATION RATE > 60.0 (>39); GLUCOSE, FASTING 134 MG/DL (70-100); POTASSIUM SERUM 3.5 MEQ/L (3.5-5.1); SODIUM LEVEL 144 MEQ/L (136-145)
[2021-02-08] MEDS ORDERED: LR 500 ML IV ONE (22:20)
[2021-02-09] VITALS (27 sets, daily range): BP systolic 95–163; BP diastolic 39–101
[2021-02-09] MEDS: HumaLOG INSULIN (NovoLOG) PER UNIT SC SCH ×4 (00:05→17:46)
[2021-02-09] MEDS: D5W 1,000 ML IV SCH (00:54)
[2021-02-09] MEDS: MIDAZOLAM INJ 2MG/2ML VIAL (J2250 PER 1MG) IV PRN ×2 (00:54→06:37)
[2021-02-09] MEDS: LEVALBUTEROL HFA 45MCG/ACT 15 GM INHALER INH SCH ×4 (01:01→20:00)
[2021-02-09] MEDS: IPRATROPIUM 0.5MG/ALBUTEROL 2.5MG INH SOL UD 3ML (DUONEB) NEB PRN (01:01)
[2021-02-09] MEDS: PIPERACILLIN/TAZOBACTAM SOD 4.5 GM in D5W MINI-BAG PLUS 50 ML IV SCH ×4 (03:48→22:24)
[2021-02-09 04:57] LABS: BASO % 0.2 % (0.0-1.0); EOS # 0.3 10^3/uL (0.0-0.5); EOS % 2.4 % (0.0-3.0); HEMATOCRIT 26.1 % (36.0-47.0); HEMOGLOBIN 7.8 g/dl (12.0-15.5); LYMPH # 1.4 10^3/uL (1.5-5.0); LYMPH % 11.2 % (24.0-44.0); MEAN CORPUSCULAR HGB CONC 29.9 g/dl (32.0-36.5); MEAN CORPUSCULAR VOLUME 83.7 fl (80.0-96.0); MONO # 0.6 10^3/uL (0.0-0.8); MONO % 4.6 % (2.0-8.0); NEUTROPHILS # 9.9 10^3/uL (1.5-8.5); NEUTROPHILS % 80.8 % (36.0-66.0); PLATELET COUNT, AUTOMATED 265 10^3/uL (150-450); RED BLOOD COUNT 3.12 10^6/uL (4.00-5.40); WHITE BLOOD COUNT 12.3 10^3/uL (4.0-10.0)
[2021-02-09 05:17] LABS: ALBUMIN 1.1 GM/DL (3.2-5.2); ALT/SGPT 11 U/L (12-78); BILIRUBIN,TOTAL 0.5 MG/DL (0.2-1.0); BLOOD UREA NITROGEN 10 MG/DL (7-18); CALCIUM LEVEL 6.5 MG/DL (8.8-10.2); CARBON DIOXIDE LEVEL 24 MEQ/L (21-32); CHLORIDE LEVEL 112 MEQ/L (98-107); CREATININE FOR GFR 0.71 MG/DL (0.55-1.30); GLOMERULAR FILTRATION RATE > 60.0 (>39); GLUCOSE, FASTING 147 MG/DL (70-100); MAGNESIUM LEVEL 1.6 MG/DL (1.8-2.4); PHOSPHORUS LEVEL 1.8 MG/DL (2.5-4.9); POTASSIUM SERUM 3.3 MEQ/L (3.5-5.1); SODIUM LEVEL 142 MEQ/L (136-145); TOTAL PROTEIN 5.1 GM/DL (6.4-8.2)
[2021-02-09] MEDS: HEPARIN SOD (PORCINE) 5000UNITS/ML 1ML VIAL/SYRINGE SC SCH ×3 (05:42→22:24)
[2021-02-09 06:10] LABS: ABG BASE EXCESS -3.8 (-2.0-2.0); ABG HCO3 19.4 MEQ/L (22.0-26.0); ABG O2 SATURATION 97.8 % (95.0-99.0); ABG PARTIAL PRESSURE CO2 28.6 mmHg (35.0-45.0); ABG PARTIAL PRESSURE O2 99.4 mmHg (75.0-100.0); ABG STANDARD HCO3 21.3 MEQ/L (22.0-26.0); ABG TOTAL CO2 20.3 MEQ/L (23.0-31.0)
[2021-02-09] MEDS: SYMBICORT 80/4.5MCG INHALER 6GM INH SCH ×2 (07:22→20:13)
[2021-02-09] MEDS ORDERED: PILL CUTTER 1 EACH XX PRN (08:15)
[2021-02-09] MEDS: CHLORHEXIDINE GLUCONATE 0.12 % 15ML UDC (PERIDEX ORAL RINSE) MT SCH (08:27)
[2021-02-09] MEDS: PANTOPRAZOLE 40MG VIAL (C9113 PER 1) IV SCH (08:28)
[2021-02-09] MEDS ORDERED: FUROSEMIDE 20MG/2ML VIAL (J1940) IV ONE (09:00)
[2021-02-09] MEDS ORDERED: MAG SULF 1GM/100ML (MAG RUN) 1 GM in IV 1 EA IV ONE (09:00)
[2021-02-09] MEDS ORDERED: K-PHOS ORIGINAL (POT.ACID PHOSPHATE) 500MG TAB GT ONE (10:00)
[2021-02-09] MEDS: NYSTATIN 100,000 UNITS/GM TOPICAL PWD 15 GM TOP PRN (12:41)
[2021-02-09] MEDS: ACETAMINOPHEN 325 MG/10.15 ML UDC NG PRN (12:46)
[2021-02-09] MEDS: MORPHINE 2 MG/ML 1ML VIAL (J2270) IV PRN ×2 (15:07→22:40)
[2021-02-09] MEDS: fentaNYL 100 MCG/2 ML INJECTION (J3010) IV PRN (19:47)
[2021-02-10] VITALS (18 sets, daily range): BP systolic 110–153; BP diastolic 53–90
[2021-02-10] MEDS: fentaNYL 100 MCG/2 ML INJECTION (J3010) IV PRN ×3 (00:34→11:34)
[2021-02-10] MEDS: LEVALBUTEROL HFA 45MCG/ACT 15 GM INHALER INH SCH ×4 (01:10→19:39)
[2021-02-10] MEDS: PIPERACILLIN/TAZOBACTAM SOD 4.5 GM in D5W MINI-BAG PLUS 50 ML IV SCH ×4 (03:28→21:01)
[2021-02-10] MEDS: HEPARIN SOD (PORCINE) 5000UNITS/ML 1ML VIAL/SYRINGE SC SCH ×3 (05:17→21:01)
[2021-02-10] MEDS: HumaLOG INSULIN (NovoLOG) PER UNIT SC SCH ×5 (05:17→21:00)
[2021-02-10] MEDS: MORPHINE 2 MG/ML 1ML VIAL (J2270) IV PRN ×5 (05:18→22:28)
[2021-02-10 05:35] LABS: BASO # 0.1 10^3/uL (0.0-0.2); BASO % 0.6 % (0.0-1.0); EOS # 0.3 10^3/uL (0.0-0.5); EOS % 2.9 % (0.0-3.0); HEMATOCRIT 27.6 % (36.0-47.0); HEMOGLOBIN 8.3 g/dl (12.0-15.5); LYMPH # 1.3 10^3/uL (1.5-5.0); LYMPH % 13.3 % (24.0-44.0); MEAN CORPUSCULAR HEMOGLOBIN 24.9 pg (27.0-33.0); MEAN CORPUSCULAR HGB CONC 30.1 g/dl (32.0-36.5); MEAN CORPUSCULAR VOLUME 82.6 fl (80.0-96.0); MONO # 0.7 10^3/uL (0.0-0.8); NEUTROPHILS # 7.6 10^3/uL (1.5-8.5); NEUTROPHILS % 75.7 % (36.0-66.0); PLATELET COUNT, AUTOMATED 298 10^3/uL (150-450); RED BLOOD COUNT 3.34 10^6/uL (4.00-5.40)
[2021-02-10 06:11] LABS: ALBUMIN 1.2 GM/DL (3.2-5.2); ALT/SGPT 11 U/L (12-78); BILIRUBIN,TOTAL 0.4 MG/DL (0.2-1.0); BLOOD UREA NITROGEN 7 MG/DL (7-18); CALCIUM LEVEL 6.9 MG/DL (8.8-10.2); CARBON DIOXIDE LEVEL 27 MEQ/L (21-32); CHLORIDE LEVEL 111 MEQ/L (98-107); CREATININE FOR GFR 0.59 MG/DL (0.55-1.30); GLOMERULAR FILTRATION RATE > 60.0 (>39); GLUCOSE, FASTING 96 MG/DL (70-100); MAGNESIUM LEVEL 1.8 MG/DL (1.8-2.4); PHOSPHORUS LEVEL 2.4 MG/DL (2.5-4.9); POTASSIUM SERUM 3.4 MEQ/L (3.5-5.1); SODIUM LEVEL 144 MEQ/L (136-145); TOTAL PROTEIN 5.4 GM/DL (6.4-8.2)
[2021-02-10] MEDS: SYMBICORT 80/4.5MCG INHALER 6GM INH SCH ×2 (08:07→19:39)
[2021-02-10] MEDS: PANTOPRAZOLE 40MG VIAL (C9113 PER 1) IV SCH (09:21)
[2021-02-10] MEDS ORDERED: POTASSIUM CHLORIDE 10MEQ SR TABLET PO ONE (15:20)
[2021-02-10] MEDS ORDERED: POTASSIUM CHLORIDE 10% LIQ 20 MEQ/15 ML UDC PO ONE (17:20)
[2021-02-10 19:36] LABS: CLOSTRIDIUM DIFFICILE PCR POSITIVE (NEGATIVE)
[2021-02-11] VITALS: BP 119/58
[2021-02-11] MEDS: LEVALBUTEROL HFA 45MCG/ACT 15 GM INHALER INH SCH ×4 (01:08→20:25)
[2021-02-11 04:01] VITALS: BP 111/59
[2021-02-11 04:08] LABS: BASO # 0.1 10^3/uL (0.0-0.2); BASO % 0.9 % (0.0-1.0); EOS # 0.2 10^3/uL (0.0-0.5); EOS % 2.3 % (0.0-3.0); HEMATOCRIT 29.3 % (36.0-47.0); HEMOGLOBIN 8.8 g/dl (12.0-15.5); LYMPH # 1.4 10^3/uL (1.5-5.0); LYMPH % 17.1 % (24.0-44.0); MEAN CORPUSCULAR HEMOGLOBIN 25.1 pg (27.0-33.0); MEAN CORPUSCULAR VOLUME 83.7 fl (80.0-96.0); MONO # 0.6 10^3/uL (0.0-0.8); NEUTROPHILS # 5.8 10^3/uL (1.5-8.5); NEUTROPHILS % 72.2 % (36.0-66.0); PLATELET COUNT, AUTOMATED 345 10^3/uL (150-450)
[2021-02-11] MEDS: PIPERACILLIN/TAZOBACTAM SOD 4.5 GM in D5W MINI-BAG PLUS 50 ML IV SCH ×5 (04:11→21:12)
[2021-02-11] MEDS: HEPARIN SOD (PORCINE) 5000UNITS/ML 1ML VIAL/SYRINGE SC SCH ×2 (06:11→14:47)
[2021-02-11 07:21] LABS: ALBUMIN 1.4 GM/DL (3.2-5.2); ALT/SGPT 12 U/L (12-78); BILIRUBIN,TOTAL 0.4 MG/DL (0.2-1.0); BLOOD UREA NITROGEN 6 MG/DL (7-18); CALCIUM LEVEL 7.6 MG/DL (8.8-10.2); CARBON DIOXIDE LEVEL 25 MEQ/L (21-32); CHLORIDE LEVEL 112 MEQ/L (98-107); CREATININE FOR GFR 0.55 MG/DL (0.55-1.30); GLOMERULAR FILTRATION RATE > 60.0 (>39); GLUCOSE, FASTING 106 MG/DL (70-100); IRON (FE) 20 UG/DL (50-170); MAGNESIUM LEVEL 1.8 MG/DL (1.8-2.4); PHOSPHORUS LEVEL 1.9 MG/DL (2.5-4.9); POTASSIUM SERUM 3.3 MEQ/L (3.5-5.1); SODIUM LEVEL 144 MEQ/L (136-145); TOTAL IRON BINDING CAPACITY 221 UG/DL (250-450); TOTAL PROTEIN 5.8 GM/DL (6.4-8.2)
[2021-02-11] MEDS: HumaLOG INSULIN (NovoLOG) PER UNIT SC SCH ×4 (07:30→21:00)
[2021-02-11 07:58] VITALS: BP 147/77
[2021-02-11] MEDS: SYMBICORT 80/4.5MCG INHALER 6GM INH SCH ×2 (08:18→20:25)
[2021-02-11 08:21] LABS: VITAMIN B12 LEVEL > 2000 PG/ML (247-911)
[2021-02-11 08:22] LABS: FOLATE 6.8 NG/ML (>5.4)
[2021-02-11] MEDS: PANTOPRAZOLE 40MG TAB (PROTONIX) PO SCH (09:00)
[2021-02-11] MEDS ORDERED: POTASSIUM CHLORIDE 10MEQ SR TABLET PO ONE (11:55)
[2021-02-11 12:00] VITALS: BP 112/52
[2021-02-11] MEDS: VANCOMYCIN ORAL SOL 250MG/5ML ORAL SYRINGE PO SCH ×2 (12:11→18:09)
[2021-02-11] MEDS ORDERED: POTASSIUM CHLORIDE 10% LIQ 20 MEQ/15 ML UDC PO ONE (13:00)
[2021-02-11] MEDS ORDERED: LIDOCAINE 1% MDV 20ML VIAL As Ordered ONE (15:28)
[2021-02-11 17:30] VITALS: BP 120/58
[2021-02-11] MEDS: SODIUM CHLORIDE 0.9% INJ 10 ML SYR IV SCH (18:09)
[2021-02-11] MEDS: ENOXAPARIN 120MG/0.8ML SYRINGE (J1650 PER 10MG) SC SCH (18:50)
[2021-02-11 20:00] VITALS: BP 129/68
[2021-02-12] VITALS (7 sets, daily range): BP systolic 129–152; BP diastolic 56–80
[2021-02-12] MEDS: VANCOMYCIN ORAL SOL 250MG/5ML ORAL SYRINGE PO SCH ×4 (00:20→17:11)
[2021-02-12] MEDS: LEVALBUTEROL HFA 45MCG/ACT 15 GM INHALER INH SCH ×4 (01:32→19:20)
[2021-02-12] MEDS: PIPERACILLIN/TAZOBACTAM SOD 4.5 GM in D5W MINI-BAG PLUS 50 ML IV SCH ×4 (04:16→21:17)
[2021-02-12] MEDS: SODIUM CHLORIDE 0.9% INJ 10 ML SYR IV SCH ×2 (06:45→17:11)
[2021-02-12] MEDS: ENOXAPARIN 120MG/0.8ML SYRINGE (J1650 PER 10MG) SC SCH ×2 (06:49→17:20)
[2021-02-12] MEDS: SYMBICORT 80/4.5MCG INHALER 6GM INH SCH ×2 (07:12→19:20)
[2021-02-12] MEDS: HumaLOG INSULIN (NovoLOG) PER UNIT SC SCH ×4 (07:30→21:00)
[2021-02-12] MEDS: PANTOPRAZOLE 40MG TAB (PROTONIX) PO SCH (07:42)
[2021-02-12 08:23] LABS: ALBUMIN 1.5 GM/DL (3.2-5.2); ALT/SGPT 13 U/L (12-78); BILIRUBIN,TOTAL 0.6 MG/DL (0.2-1.0); BLOOD UREA NITROGEN 5 MG/DL (7-18); C REACTIVE PROTEIN QUANTITATIV 2.39 MG/DL (0.00-0.30); CALCIUM LEVEL 7.5 MG/DL (8.8-10.2); CARBON DIOXIDE LEVEL 26 MEQ/L (21-32); CHLORIDE LEVEL 112 MEQ/L (98-107); CREATININE FOR GFR 0.52 MG/DL (0.55-1.30); GLOMERULAR FILTRATION RATE > 60.0 (>39); GLUCOSE, FASTING 105 MG/DL (70-100); POTASSIUM SERUM 3.3 MEQ/L (3.5-5.1); SODIUM LEVEL 144 MEQ/L (136-145); TOTAL PROTEIN 6.1 GM/DL (6.4-8.2)
[2021-02-12 08:53] LABS: BASO # 0.1 10^3/uL (0.0-0.2); BASO % 1.1 % (0.0-1.0); EOS # 0.2 10^3/uL (0.0-0.5); EOS % 2.8 % (0.0-3.0); HEMOGLOBIN 9.2 g/dl (12.0-15.5); LYMPH # 1.6 10^3/uL (1.5-5.0); LYMPH % 19.2 % (24.0-44.0); MEAN CORPUSCULAR HEMOGLOBIN 25.3 pg (27.0-33.0); MEAN CORPUSCULAR HGB CONC 30.7 g/dl (32.0-36.5); MEAN CORPUSCULAR VOLUME 82.6 fl (80.0-96.0); MONO # 0.6 10^3/uL (0.0-0.8); MONO % 7.5 % (2.0-8.0); NEUTROPHILS # 5.9 10^3/uL (1.5-8.5); NEUTROPHILS % 68.7 % (36.0-66.0); PLATELET COUNT, AUTOMATED 348 10^3/uL (150-450); RED BLOOD COUNT 3.63 10^6/uL (4.00-5.40); WHITE BLOOD COUNT 8.6 10^3/uL (4.0-10.0)
[2021-02-12 10:13] LABS: HEMOGLOBIN A1c 5.7 %
[2021-02-12] MEDS ORDERED: POTASSIUM CHLORIDE 10% LIQ 20 MEQ/15 ML UDC PO ONE (12:00)
[2021-02-13 00:15] VITALS: BP 112/51
[2021-02-13] MEDS: VANCOMYCIN ORAL SOL 250MG/5ML ORAL SYRINGE PO SCH ×4 (00:17→17:29)
[2021-02-13] MEDS: LEVALBUTEROL HFA 45MCG/ACT 15 GM INHALER INH SCH ×4 (01:37→19:02)
[2021-02-13 04:05] VITALS: BP 121/56
[2021-02-13] MEDS: PIPERACILLIN/TAZOBACTAM SOD 4.5 GM in D5W MINI-BAG PLUS 50 ML IV SCH ×4 (04:23→22:00)
[2021-02-13] MEDS: ENOXAPARIN 120MG/0.8ML SYRINGE (J1650 PER 10MG) SC SCH ×2 (06:16→17:29)
[2021-02-13] MEDS: SODIUM CHLORIDE 0.9% INJ 10 ML SYR IV SCH ×2 (06:17→17:29)
[2021-02-13 06:32] LABS: BASO # 0.1 10^3/uL (0.0-0.2); EOS # 0.2 10^3/uL (0.0-0.5); EOS % 2.7 % (0.0-3.0); HEMATOCRIT 27.9 % (36.0-47.0); HEMOGLOBIN 8.5 g/dl (12.0-15.5); LYMPH # 1.6 10^3/uL (1.5-5.0); LYMPH % 23.5 % (24.0-44.0); MEAN CORPUSCULAR HEMOGLOBIN 25.1 pg (27.0-33.0); MEAN CORPUSCULAR HGB CONC 30.5 g/dl (32.0-36.5); MEAN CORPUSCULAR VOLUME 82.5 fl (80.0-96.0); MONO # 0.6 10^3/uL (0.0-0.8); MONO % 8.2 % (2.0-8.0); NEUTROPHILS # 4.3 10^3/uL (1.5-8.5); NEUTROPHILS % 64.3 % (36.0-66.0); PLATELET COUNT, AUTOMATED 280 10^3/uL (150-450); RED BLOOD COUNT 3.38 10^6/uL (4.00-5.40); WHITE BLOOD COUNT 6.7 10^3/uL (4.0-10.0)
[2021-02-13] MEDS: SYMBICORT 80/4.5MCG INHALER 6GM INH SCH ×2 (07:07→19:01)
[2021-02-13] MEDS: HumaLOG INSULIN (NovoLOG) PER UNIT SC SCH ×4 (07:30→21:00)
[2021-02-13 07:40] LABS: ALBUMIN 1.5 GM/DL (3.2-5.2); ALT/SGPT 11 U/L (12-78); BILIRUBIN,TOTAL 0.5 MG/DL (0.2-1.0); BLOOD UREA NITROGEN 6 MG/DL (7-18); CALCIUM LEVEL 7.4 MG/DL (8.8-10.2); CARBON DIOXIDE LEVEL 28 MEQ/L (21-32); CHLORIDE LEVEL 111 MEQ/L (98-107); CREATININE FOR GFR 0.61 MG/DL (0.55-1.30); GLOMERULAR FILTRATION RATE > 60.0 (>39); GLUCOSE, FASTING 107 MG/DL (70-100); MAGNESIUM LEVEL 1.9 MG/DL (1.8-2.4); POTASSIUM SERUM 3.4 MEQ/L (3.5-5.1); SODIUM LEVEL 145 MEQ/L (136-145); TOTAL PROTEIN 6.1 GM/DL (6.4-8.2)
[2021-02-13 07:45] VITALS: BP 142/64
[2021-02-13] MEDS: PANTOPRAZOLE 40MG TAB (PROTONIX) PO SCH (09:00)
[2021-02-13] MEDS: POTASSIUM CHLORIDE 10% LIQ 20 MEQ/15 ML UDC PO SCH (09:43)
[2021-02-13] MEDS: SODIUM CHLORIDE 0.9% INJ 10 ML SYR IV PRN (11:23)
[2021-02-13 12:08] VITALS: BP 143/74
[2021-02-13] MEDS: IPRATROPIUM 0.5MG/ALBUTEROL 2.5MG INH SOL UD 3ML (DUONEB) NEB PRN (16:31)
[2021-02-13 16:38] VITALS: BP 142/70
[2021-02-13] MEDS ORDERED: FUROSEMIDE 40MG/4ML VIAL (J1940) IV ONE (18:00)
[2021-02-13 19:00] LABS: NT-PRO BNP 2312 PG/ML (<125)
[2021-02-13] MEDS: IPRATROPIUM 0.5MG/ALBUTEROL 2.5MG INH SOL UD 3ML (DUONEB) NEB SCH (19:02)
[2021-02-13 20:00] VITALS: BP 147/63
[2021-02-13] MEDS: MORPHINE 2 MG/ML 1ML VIAL (J2270) IV PRN (23:44)
[2021-02-14] VITALS: BP 131/59
[2021-02-14] MEDS: VANCOMYCIN ORAL SOL 250MG/5ML ORAL SYRINGE PO SCH ×4 (00:32→18:08)
[2021-02-14] MEDS: IPRATROPIUM 0.5MG/ALBUTEROL 2.5MG INH SOL UD 3ML (DUONEB) NEB SCH ×4 (02:00→20:00)
[2021-02-14] MEDS: LEVALBUTEROL HFA 45MCG/ACT 15 GM INHALER INH SCH ×4 (02:00→19:39)
[2021-02-14 04:00] VITALS: BP 150/62
[2021-02-14] MEDS: PIPERACILLIN/TAZOBACTAM SOD 4.5 GM in D5W MINI-BAG PLUS 50 ML IV SCH ×4 (04:34→22:15)
[2021-02-14] MEDS: ENOXAPARIN 120MG/0.8ML SYRINGE (J1650 PER 10MG) SC SCH ×2 (05:11→18:08)
[2021-02-14] MEDS: SODIUM CHLORIDE 0.9% INJ 10 ML SYR IV SCH ×2 (05:11→17:49)
[2021-02-14 05:24] LABS: BASO # 0.1 10^3/uL (0.0-0.2); BASO % 1.2 % (0.0-1.0); EOS # 0.2 10^3/uL (0.0-0.5); EOS % 3.5 % (0.0-3.0); HEMATOCRIT 28.5 % (36.0-47.0); HEMOGLOBIN 8.6 g/dl (12.0-15.5); LYMPH # 1.8 10^3/uL (1.5-5.0); LYMPH % 29.3 % (24.0-44.0); MEAN CORPUSCULAR HEMOGLOBIN 25.3 pg (27.0-33.0); MEAN CORPUSCULAR HGB CONC 30.2 g/dl (32.0-36.5); MEAN CORPUSCULAR VOLUME 83.8 fl (80.0-96.0); MONO # 0.6 10^3/uL (0.0-0.8); MONO % 9.8 % (2.0-8.0); NEUTROPHILS # 3.4 10^3/uL (1.5-8.5); NEUTROPHILS % 55.9 % (36.0-66.0); PLATELET COUNT, AUTOMATED 236 10^3/uL (150-450); WHITE BLOOD COUNT 6.1 10^3/uL (4.0-10.0)
[2021-02-14 05:50] LABS: ALBUMIN 1.6 GM/DL (3.2-5.2); ALT/SGPT 12 U/L (12-78); BILIRUBIN,TOTAL 0.5 MG/DL (0.2-1.0); BLOOD UREA NITROGEN 7 MG/DL (7-18); CALCIUM LEVEL 7.7 MG/DL (8.8-10.2); CARBON DIOXIDE LEVEL 30 MEQ/L (21-32); CHLORIDE LEVEL 108 MEQ/L (98-107); CREATININE FOR GFR 0.72 MG/DL (0.55-1.30); GLOMERULAR FILTRATION RATE > 60.0 (>39); GLUCOSE, FASTING 106 MG/DL (70-100); MAGNESIUM LEVEL 2.1 MG/DL (1.8-2.4); POTASSIUM SERUM 3.6 MEQ/L (3.5-5.1); SODIUM LEVEL 143 MEQ/L (136-145); TOTAL PROTEIN 6.5 GM/DL (6.4-8.2)
[2021-02-14] MEDS: HumaLOG INSULIN (NovoLOG) PER UNIT SC SCH ×4 (07:30→21:00)
[2021-02-14 08:00] VITALS: BP 138/59
[2021-02-14] MEDS: SYMBICORT 80/4.5MCG INHALER 6GM INH SCH ×2 (09:15→19:39)
[2021-02-14] MEDS: POTASSIUM CHLORIDE 10% LIQ 20 MEQ/15 ML UDC PO SCH (09:32)
[2021-02-14] MEDS: PANTOPRAZOLE 40MG TAB (PROTONIX) PO SCH (09:33)
[2021-02-14 12:00] VITALS: BP 115/56
[2021-02-14] MEDS: FUROSEMIDE 40MG/4ML VIAL (J1940) IV SCH (12:58)
[2021-02-14] MEDS: MORPHINE 2 MG/ML 1ML VIAL (J2270) IV PRN (18:30)
[2021-02-14 22:00] VITALS: BP 114/58
[2021-02-14] MEDS: SODIUM CHLORIDE 0.9% INJ 10 ML SYR IV PRN (22:15)
[2021-02-14] MEDS: NYSTATIN 100,000 UNITS/GM TOPICAL PWD 15 GM TOP PRN (22:16)
[2021-02-15] MEDS: SODIUM CHLORIDE 0.9% INJ 10 ML SYR IV PRN ×5 (00:24→21:35)
[2021-02-15] MEDS: VANCOMYCIN ORAL SOL 250MG/5ML ORAL SYRINGE PO SCH ×3 (00:24→13:03)
[2021-02-15] MEDS: IPRATROPIUM 0.5MG/ALBUTEROL 2.5MG INH SOL UD 3ML (DUONEB) NEB SCH ×4 (00:45→20:00)
[2021-02-15] MEDS: LEVALBUTEROL HFA 45MCG/ACT 15 GM INHALER INH SCH ×4 (00:45→19:36)
[2021-02-15] MEDS: diphenhydrAMINE 50MG/ML VIAL (J1200) IV PRN ×3 (03:10→21:16)
[2021-02-15] MEDS: MORPHINE 2 MG/ML 1ML VIAL (J2270) IV PRN ×2 (03:11→21:20)
[2021-02-15] MEDS: SODIUM CHLORIDE 0.9% INJ 10 ML SYR IV SCH ×2 (05:15→18:55)
[2021-02-15] MEDS: ENOXAPARIN 120MG/0.8ML SYRINGE (J1650 PER 10MG) SC SCH ×2 (05:15→18:54)
[2021-02-15 05:51] LABS: BASO # 0.1 10^3/uL (0.0-0.2); BASO % 1.5 % (0.0-1.0); EOS # 0.3 10^3/uL (0.0-0.5); LYMPH # 1.6 10^3/uL (1.5-5.0); LYMPH % 28.8 % (24.0-44.0); MEAN CORPUSCULAR HEMOGLOBIN 25.4 pg (27.0-33.0); MEAN CORPUSCULAR HGB CONC 30.3 g/dl (32.0-36.5); MONO # 0.5 10^3/uL (0.0-0.8); MONO % 9.6 % (2.0-8.0); NEUTROPHILS % 54.7 % (36.0-66.0); PLATELET COUNT, AUTOMATED 149 10^3/uL (150-450); RED BLOOD COUNT 3.93 10^6/uL (4.00-5.40); WHITE BLOOD COUNT 5.4 10^3/uL (4.0-10.0)
[2021-02-15 06:00] VITALS: BP 115/57
[2021-02-15 06:16] LABS: ALBUMIN 1.6 GM/DL (3.2-5.2); ALT/SGPT 10 U/L (12-78); BILIRUBIN,TOTAL 0.5 MG/DL (0.2-1.0); BLOOD UREA NITROGEN 9 MG/DL (7-18); CALCIUM LEVEL 7.9 MG/DL (8.8-10.2); CARBON DIOXIDE LEVEL 31 MEQ/L (21-32); CHLORIDE LEVEL 107 MEQ/L (98-107); CREATININE FOR GFR 0.76 MG/DL (0.55-1.30); GLOMERULAR FILTRATION RATE > 60.0 (>39); GLUCOSE, FASTING 100 MG/DL (70-100); MAGNESIUM LEVEL 2.1 MG/DL (1.8-2.4); POTASSIUM SERUM 3.7 MEQ/L (3.5-5.1); SODIUM LEVEL 143 MEQ/L (136-145); TOTAL PROTEIN 6.5 GM/DL (6.4-8.2)
[2021-02-15] MEDS: HumaLOG INSULIN (NovoLOG) PER UNIT SC SCH ×4 (07:07→21:00)
[2021-02-15] MEDS: SYMBICORT 80/4.5MCG INHALER 6GM INH SCH ×2 (08:05→19:36)
[2021-02-15] MEDS: POTASSIUM CHLORIDE 10% LIQ 20 MEQ/15 ML UDC PO SCH (10:59)
[2021-02-15] MEDS: FUROSEMIDE 40MG/4ML VIAL (J1940) IV SCH (10:59)
[2021-02-15] MEDS: PANTOPRAZOLE 40MG TAB (PROTONIX) PO SCH (11:00)
[2021-02-15 14:00] VITALS: BP 113/58
[2021-02-15] MEDS ORDERED: diphenhydrAMINE 50MG/ML VIAL (J1200) IV ONE (17:05)
[2021-02-15] MEDS: FLUCONAZOLE 100 MG TAB PO SCH (18:54)
[2021-02-15] MEDS: CHOLESTYRAMINE 4 GM PWD PKT PO SCH (18:54)
[2021-02-15] MEDS ORDERED: QUEtiapine FUMARATE 25 MG TAB PO SCH (21:00)
[2021-02-15 21:15] VITALS: BP 110/61
[2021-02-15] MEDS: FIDAXOMICIN 200 MG TAB (DIFICID) PO SCH (21:15)
[2021-02-15] MEDS: FIBER-CON 625 MG TAB PO SCH (21:15)
[2021-02-15] MEDS: LOMOTIL 2.5MG/0.025MG TABLET PO SCH (21:15)
[2021-02-15] MEDS: NYSTATIN 100,000 UNITS/GM TOPICAL PWD 15 GM TOP PRN (21:22)
[2021-02-16] MEDS: IPRATROPIUM 0.5MG/ALBUTEROL 2.5MG INH SOL UD 3ML (DUONEB) NEB SCH ×4 (01:33→20:00)
[2021-02-16] MEDS: LEVALBUTEROL HFA 45MCG/ACT 15 GM INHALER INH SCH ×4 (01:33→19:43)
[2021-02-16] MEDS: SODIUM CHLORIDE 0.9% INJ 10 ML SYR IV PRN ×2 (03:19→06:07)
[2021-02-16] MEDS: diphenhydrAMINE 50MG/ML VIAL (J1200) IV PRN (03:19)
[2021-02-16] MEDS: CHOLESTYRAMINE 4 GM PWD PKT PO SCH (06:06)
[2021-02-16] MEDS: SODIUM CHLORIDE 0.9% INJ 10 ML SYR IV SCH (06:06)
[2021-02-16] MEDS: ENOXAPARIN 120MG/0.8ML SYRINGE (J1650 PER 10MG) SC SCH ×2 (06:06→18:21)
[2021-02-16 06:08] VITALS: BP 119/49
[2021-02-16] MEDS: MORPHINE 2 MG/ML 1ML VIAL (J2270) IV PRN (06:28)
[2021-02-16] MEDS: SYMBICORT 80/4.5MCG INHALER 6GM INH SCH ×2 (06:52→19:43)
[2021-02-16 06:54] LABS: BASO # 0.1 10^3/uL (0.0-0.2); BASO % 1.7 % (0.0-1.0); EOS # 0.3 10^3/uL (0.0-0.5); EOS % 4.4 % (0.0-3.0); HEMATOCRIT 28.4 % (36.0-47.0); HEMOGLOBIN 8.5 g/dl (12.0-15.5); LYMPH % 33.9 % (24.0-44.0); MEAN CORPUSCULAR HEMOGLOBIN 25.2 pg (27.0-33.0); MEAN CORPUSCULAR HGB CONC 29.9 g/dl (32.0-36.5); MEAN CORPUSCULAR VOLUME 84.3 fl (80.0-96.0); MONO # 0.6 10^3/uL (0.0-0.8); MONO % 10.8 % (2.0-8.0); NEUTROPHILS # 2.9 10^3/uL (1.5-8.5); NEUTROPHILS % 48.7 % (36.0-66.0); PLATELET COUNT, AUTOMATED 106 10^3/uL (150-450); RED BLOOD COUNT 3.37 10^6/uL (4.00-5.40)
[2021-02-16] MEDS: HumaLOG INSULIN (NovoLOG) PER UNIT SC SCH ×4 (07:30→22:53)
[2021-02-16 07:45] LABS: ALBUMIN 1.4 GM/DL (3.2-5.2); ALT/SGPT 9 U/L (12-78); BILIRUBIN,TOTAL 0.5 MG/DL (0.2-1.0); BLOOD UREA NITROGEN 11 MG/DL (7-18); CALCIUM LEVEL 7.6 MG/DL (8.8-10.2); CARBON DIOXIDE LEVEL 30 MEQ/L (21-32); CHLORIDE LEVEL 108 MEQ/L (98-107); CREATININE FOR GFR 0.72 MG/DL (0.55-1.30); GLOMERULAR FILTRATION RATE > 60.0 (>39); GLUCOSE, FASTING 91 MG/DL (70-100); MAGNESIUM LEVEL 2.1 MG/DL (1.8-2.4); POTASSIUM SERUM 3.8 MEQ/L (3.5-5.1); SODIUM LEVEL 143 MEQ/L (136-145); TOTAL PROTEIN 6.3 GM/DL (6.4-8.2)
[2021-02-16 08:00] VITALS: BP 144/48
[2021-02-16] MEDS: FUROSEMIDE 40MG/4ML VIAL (J1940) IV SCH (11:13)
[2021-02-16] MEDS: PANTOPRAZOLE 40MG TAB (PROTONIX) PO SCH (11:14)
[2021-02-16] MEDS: POTASSIUM CHLORIDE 10% LIQ 20 MEQ/15 ML UDC PO SCH (11:14)
[2021-02-16] MEDS: LOMOTIL 2.5MG/0.025MG TABLET PO SCH (11:14)
[2021-02-16] MEDS: FIBER-CON 625 MG TAB PO SCH (11:35)
[2021-02-16] MEDS: FIDAXOMICIN 200 MG TAB (DIFICID) PO SCH (11:35)
[2021-02-16 14:00] VITALS: BP 95/48
[2021-02-16 15:01] VITALS: BP 108/64
[2021-02-16 17:03] LABS: BASO # 0.1 10^3/uL (0.0-0.2); BASO % 1.4 % (0.0-1.0); EOS # 0.3 10^3/uL (0.0-0.5); EOS % 4.3 % (0.0-3.0); HEMATOCRIT 32.8 % (36.0-47.0); HEMOGLOBIN 9.5 g/dl (12.0-15.5); LYMPH # 2.2 10^3/uL (1.5-5.0); LYMPH % 30.3 % (24.0-44.0); MEAN CORPUSCULAR VOLUME 86.3 fl (80.0-96.0); MONO # 0.6 10^3/uL (0.0-0.8); MONO % 8.7 % (2.0-8.0); PLATELET COUNT, AUTOMATED 105 10^3/uL (150-450); WHITE BLOOD COUNT 7.2 10^3/uL (4.0-10.0)
[2021-02-16 17:37] LABS: BLOOD UREA NITROGEN 15 MG/DL (7-18); CALCIUM LEVEL 8.2 MG/DL (8.8-10.2); CARBON DIOXIDE LEVEL 30 MEQ/L (21-32); CHLORIDE LEVEL 105 MEQ/L (98-107); CREATININE FOR GFR 0.77 MG/DL (0.55-1.30); GLOMERULAR FILTRATION RATE > 60.0 (>39); GLUCOSE, FASTING 113 MG/DL (70-100); MAGNESIUM LEVEL 1.9 MG/DL (1.8-2.4); POTASSIUM SERUM 4.3 MEQ/L (3.5-5.1); SODIUM LEVEL 140 MEQ/L (136-145)
[2021-02-16] MEDS: FLUCONAZOLE 100 MG TAB PO SCH (18:21)
[2021-02-16] MEDS ORDERED: CHOLESTYRAMINE 4 GM PWD PKT PO SCH (22:00)
[2021-02-16 22:45] VITALS: BP 104/46
[2021-02-17] MEDS: LOMOTIL 2.5MG/0.025MG TABLET PO SCH ×3 (00:42→20:34)
[2021-02-17] MEDS: FIBER-CON 625 MG TAB PO SCH (00:42)
[2021-02-17] MEDS: diphenhydrAMINE 50MG/ML VIAL (J1200) IV PRN ×2 (00:43→18:37)
[2021-02-17] MEDS: FIDAXOMICIN 200 MG TAB (DIFICID) PO SCH ×3 (00:43→20:34)
[2021-02-17] MEDS: LEVALBUTEROL HFA 45MCG/ACT 15 GM INHALER INH SCH ×4 (01:55→19:48)
[2021-02-17] MEDS: IPRATROPIUM 0.5MG/ALBUTEROL 2.5MG INH SOL UD 3ML (DUONEB) NEB SCH ×4 (01:55→19:49)
[2021-02-17 06:00] VITALS: BP 110/62
[2021-02-17] MEDS: ENOXAPARIN 120MG/0.8ML SYRINGE (J1650 PER 10MG) SC SCH ×2 (06:34→18:00)
[2021-02-17] MEDS: MORPHINE 2 MG/ML 1ML VIAL (J2270) IV PRN (06:45)
[2021-02-17] MEDS: HumaLOG INSULIN (NovoLOG) PER UNIT SC SCH ×4 (07:30→20:06)
[2021-02-17] MEDS: SYMBICORT 80/4.5MCG INHALER 6GM INH SCH ×2 (08:16→19:49)
[2021-02-17] MEDS: FUROSEMIDE 40MG/4ML VIAL (J1940) IV SCH (09:00)
[2021-02-17] MEDS: PANTOPRAZOLE 40MG TAB (PROTONIX) PO SCH (09:28)
[2021-02-17] MEDS: POTASSIUM CHLORIDE 10% LIQ 20 MEQ/15 ML UDC PO SCH (09:28)
[2021-02-17] MEDS: traMADol 50 MG TAB PO PRN ×3 (11:54→22:28)
[2021-02-17 13:13] LABS: HEMATOCRIT 31.8 % (36.0-47.0); HEMOGLOBIN 9.5 g/dl (12.0-15.5); MEAN CORPUSCULAR HEMOGLOBIN 25.5 pg (27.0-33.0); MEAN CORPUSCULAR HGB CONC 29.9 g/dl (32.0-36.5); MEAN CORPUSCULAR VOLUME 85.5 fl (80.0-96.0); RED BLOOD COUNT 3.72 10^6/uL (4.00-5.40); WHITE BLOOD COUNT 7.9 10^3/uL (4.0-10.0)
[2021-02-17 13:41] LABS: ALBUMIN 1.6 GM/DL (3.2-5.2); ALT/SGPT 10 U/L (12-78); BILIRUBIN,TOTAL 0.4 MG/DL (0.2-1.0); BLOOD UREA NITROGEN 16 MG/DL (7-18); CARBON DIOXIDE LEVEL 31 MEQ/L (21-32); CHLORIDE LEVEL 105 MEQ/L (98-107); CREATININE FOR GFR 0.82 MG/DL (0.55-1.30); GLOMERULAR FILTRATION RATE > 60.0 (>39); GLUCOSE, FASTING 111 MG/DL (70-100); MAGNESIUM LEVEL 2.1 MG/DL (1.8-2.4); POTASSIUM SERUM 4.7 MEQ/L (3.5-5.1); SODIUM LEVEL 139 MEQ/L (136-145); TOTAL PROTEIN 6.6 GM/DL (6.4-8.2)
[2021-02-17 14:00] VITALS: BP 104/60
[2021-02-17] MEDS: FLUCONAZOLE 100 MG TAB PO SCH (18:37)
[2021-02-17] MEDS: RAMELTEON 8 MG TAB (ROZEREM) PO SCH (20:34)
[2021-02-17] MEDS: VANICREAM MOISTURIZING SKIN CREAM 113GM TUBE TOP SCH (20:34)
[2021-02-17] MEDS: TRIAMCINOLONE ACET 0.1% OINTMENT 15 GM TOP SCH (21:00)
[2021-02-17 22:00] VITALS: BP 117/60
[2021-02-18] MEDS: LEVALBUTEROL HFA 45MCG/ACT 15 GM INHALER INH SCH ×4 (01:48→19:26)
[2021-02-18 05:55] LABS: HEMATOCRIT 33.1 % (36.0-47.0); HEMOGLOBIN 9.8 g/dl (12.0-15.5); MEAN CORPUSCULAR HEMOGLOBIN 25.3 pg (27.0-33.0); MEAN CORPUSCULAR HGB CONC 29.6 g/dl (32.0-36.5); MEAN CORPUSCULAR VOLUME 85.3 fl (80.0-96.0); RED BLOOD COUNT 3.88 10^6/uL (4.00-5.40)
[2021-02-18 06:00] VITALS: BP 120/50
[2021-02-18 06:17] LABS: ALBUMIN 1.6 GM/DL (3.2-5.2); ALT/SGPT 9 U/L (12-78); BILIRUBIN,TOTAL 0.5 MG/DL (0.2-1.0); BLOOD UREA NITROGEN 14 MG/DL (7-18); C REACTIVE PROTEIN QUANTITATIV 3.84 MG/DL (0.00-0.30); CALCIUM LEVEL 7.8 MG/DL (8.8-10.2); CARBON DIOXIDE LEVEL 27 MEQ/L (21-32); CHLORIDE LEVEL 103 MEQ/L (98-107); CREATININE FOR GFR 0.86 MG/DL (0.55-1.30); GLOMERULAR FILTRATION RATE > 60.0 (>39); GLUCOSE, FASTING 101 MG/DL (70-100); MAGNESIUM LEVEL 2.1 MG/DL (1.8-2.4); POTASSIUM SERUM 4.2 MEQ/L (3.5-5.1); SODIUM LEVEL 138 MEQ/L (136-145); TOTAL PROTEIN 7.1 GM/DL (6.4-8.2)
[2021-02-18 07:13] LABS: PLATELET COUNT, AUTOMATED 74 10^3/uL (150-450)
[2021-02-18] MEDS: SYMBICORT 80/4.5MCG INHALER 6GM INH SCH ×2 (07:27→19:25)
[2021-02-18] MEDS: IPRATROPIUM 0.5MG/ALBUTEROL 2.5MG INH SOL UD 3ML (DUONEB) NEB SCH ×3 (07:28→19:26)
[2021-02-18] MEDS: HumaLOG INSULIN (NovoLOG) PER UNIT SC SCH ×4 (07:30→22:01)
[2021-02-18] MEDS: FIDAXOMICIN 200 MG TAB (DIFICID) PO SCH ×2 (09:27→22:22)
[2021-02-18] MEDS: POTASSIUM CHLORIDE 10% LIQ 20 MEQ/15 ML UDC PO SCH (09:27)
[2021-02-18] MEDS: LOMOTIL 2.5MG/0.025MG TABLET PO SCH ×2 (09:27→22:22)
[2021-02-18] MEDS: traMADol 50 MG TAB PO PRN ×4 (09:28→22:24)
[2021-02-18] MEDS: FUROSEMIDE 40MG/4ML VIAL (J1940) IV SCH (09:28)
[2021-02-18] MEDS: VANICREAM MOISTURIZING SKIN CREAM 113GM TUBE TOP SCH ×2 (09:29→22:23)
[2021-02-18] MEDS: TRIAMCINOLONE ACET 0.1% OINTMENT 15 GM TOP SCH ×2 (09:29→22:22)
[2021-02-18 14:00] VITALS: BP_SYST 145; BP_SYST 148; BP_DIAS 74; BP_DIAS 75
[2021-02-18] MEDS: FLUCONAZOLE 100 MG TAB PO SCH (17:35)
[2021-02-18 22:00] VITALS: BP 124/58
[2021-02-18] MEDS: RAMELTEON 8 MG TAB (ROZEREM) PO SCH (22:22)
[2021-02-18] MEDS: FIBER-CON 625 MG TAB PO SCH (22:22)
[2021-02-18] MEDS: diphenhydrAMINE 50MG/ML VIAL (J1200) IV PRN ×2 (22:23→23:37)
[2021-02-18] MEDS: NYSTATIN 100,000 UNITS/GM TOPICAL PWD 15 GM TOP PRN (22:25)
[2021-02-19] MEDS: IPRATROPIUM 0.5MG/ALBUTEROL 2.5MG INH SOL UD 3ML (DUONEB) NEB SCH ×4 (02:00→18:09)
[2021-02-19] MEDS: LEVALBUTEROL HFA 45MCG/ACT 15 GM INHALER INH SCH ×4 (02:43→18:08)
[2021-02-19] MEDS: diphenhydrAMINE 50MG/ML VIAL (J1200) IV PRN (04:05)
[2021-02-19] MEDS: traMADol 50 MG TAB PO PRN ×4 (04:06→22:51)
[2021-02-19 06:00] VITALS: BP 130/60
[2021-02-19] MEDS: SYMBICORT 80/4.5MCG INHALER 6GM INH SCH ×2 (07:11→18:07)
[2021-02-19 09:10] LABS: BLOOD UREA NITROGEN 14 MG/DL (7-18); CALCIUM LEVEL 7.6 MG/DL (8.8-10.2); CARBON DIOXIDE LEVEL 25 MEQ/L (21-32); CHLORIDE LEVEL 102 MEQ/L (98-107); GLOMERULAR FILTRATION RATE > 60.0 (>39); GLUCOSE, FASTING 108 MG/DL (70-100); POTASSIUM SERUM 4.5 MEQ/L (3.5-5.1); SODIUM LEVEL 135 MEQ/L (136-145)
[2021-02-19] MEDS: HumaLOG INSULIN (NovoLOG) PER UNIT SC SCH ×4 (09:14→22:13)
[2021-02-19] MEDS: LOMOTIL 2.5MG/0.025MG TABLET PO SCH ×2 (09:29→22:48)
[2021-02-19] MEDS: FIDAXOMICIN 200 MG TAB (DIFICID) PO SCH ×2 (09:29→22:48)
[2021-02-19] MEDS: POTASSIUM CHLORIDE 10% LIQ 20 MEQ/15 ML UDC PO SCH (09:29)
[2021-02-19] MEDS: diphenhydrAMINE 50MG CAP PO PRN ×3 (09:29→22:49)
[2021-02-19] MEDS: FUROSEMIDE 40 MG TAB PO SCH (09:30)
[2021-02-19] MEDS: FIBER-CON 625 MG TAB PO SCH ×2 (09:31→22:48)
[2021-02-19] MEDS: TRIAMCINOLONE ACET 0.1% OINTMENT 15 GM TOP SCH ×2 (09:32→22:49)
[2021-02-19] MEDS: LACRILUBE (AKWA TEARS) OPHTH OINT 3.5 GM OU PRN (09:32)
[2021-02-19] MEDS: VANICREAM MOISTURIZING SKIN CREAM 113GM TUBE TOP SCH ×2 (09:34→22:49)
[2021-02-19 09:55] LABS: HEMATOCRIT 31.6 % (36.0-47.0); HEMOGLOBIN 9.6 g/dl (12.0-15.5); MEAN CORPUSCULAR HEMOGLOBIN 25.2 pg (27.0-33.0); MEAN CORPUSCULAR HGB CONC 30.4 g/dl (32.0-36.5); MEAN CORPUSCULAR VOLUME 82.9 fl (80.0-96.0); PLATELET COUNT, AUTOMATED 72 10^3/uL (150-450); RED BLOOD COUNT 3.81 10^6/uL (4.00-5.40); WHITE BLOOD COUNT 7.9 10^3/uL (4.0-10.0)
[2021-02-19] MEDS: CHOLESTYRAMINE 4 GM PWD PKT PO SCH (11:46)
[2021-02-19 14:00] VITALS: BP 112/60
[2021-02-19] MEDS: FLUCONAZOLE 100 MG TAB PO SCH (17:01)
[2021-02-19 22:00] VITALS: BP 115/58
[2021-02-19] MEDS: RAMELTEON 8 MG TAB (ROZEREM) PO SCH (22:48)
[2021-02-19] MEDS: NYSTATIN 100,000 UNITS/GM TOPICAL PWD 15 GM TOP PRN (22:49)
[2021-02-20] MEDS: ALBUTEROL 90 MCG/ACT 8GM HFA INHALER INH PRN (00:08)
[2021-02-20] MEDS: CHOLESTYRAMINE 4 GM PWD PKT PO SCH ×2 (00:41→10:48)
[2021-02-20] MEDS: LEVALBUTEROL HFA 45MCG/ACT 15 GM INHALER INH SCH ×5 (01:16→23:30)
[2021-02-20] MEDS: IPRATROPIUM 0.5MG/ALBUTEROL 2.5MG INH SOL UD 3ML (DUONEB) NEB SCH ×4 (01:16→20:00)
[2021-02-20 06:00] VITALS: BP 102/58
[2021-02-20 06:22] LABS: HEMATOCRIT 30.1 % (36.0-47.0); HEMOGLOBIN 9.1 g/dl (12.0-15.5); MEAN CORPUSCULAR HEMOGLOBIN 25.5 pg (27.0-33.0); MEAN CORPUSCULAR HGB CONC 30.2 g/dl (32.0-36.5); MEAN CORPUSCULAR VOLUME 84.3 fl (80.0-96.0); RED BLOOD COUNT 3.57 10^6/uL (4.00-5.40); WHITE BLOOD COUNT 7.9 10^3/uL (4.0-10.0)
[2021-02-20 06:25] LABS: PLATELET COUNT, AUTOMATED 92 10^3/uL (150-450)
[2021-02-20 06:42] LABS: BLOOD UREA NITROGEN 13 MG/DL (7-18); CALCIUM LEVEL 7.9 MG/DL (8.8-10.2); CARBON DIOXIDE LEVEL 31 MEQ/L (21-32); CHLORIDE LEVEL 98 MEQ/L (98-107); CREATININE FOR GFR 0.84 MG/DL (0.55-1.30); GLOMERULAR FILTRATION RATE > 60.0 (>39); GLUCOSE, FASTING 104 MG/DL (70-100); SODIUM LEVEL 133 MEQ/L (136-145)
[2021-02-20] MEDS: SYMBICORT 80/4.5MCG INHALER 6GM INH SCH ×2 (07:02→20:37)
[2021-02-20] MEDS: HumaLOG INSULIN (NovoLOG) PER UNIT SC SCH ×4 (07:30→22:29)
[2021-02-20] MEDS: POTASSIUM CHLORIDE 10% LIQ 20 MEQ/15 ML UDC PO SCH (08:55)
[2021-02-20] MEDS: LOMOTIL 2.5MG/0.025MG TABLET PO SCH ×2 (08:55→22:46)
[2021-02-20] MEDS: FUROSEMIDE 40 MG TAB PO SCH ×2 (08:55→09:00)
[2021-02-20] MEDS: FIBER-CON 625 MG TAB PO SCH ×2 (09:04→22:46)
[2021-02-20] MEDS: TRIAMCINOLONE ACET 0.1% OINTMENT 15 GM TOP SCH ×2 (09:04→22:48)
[2021-02-20] MEDS: FIDAXOMICIN 200 MG TAB (DIFICID) PO SCH ×2 (09:04→22:46)
[2021-02-20] MEDS: VANICREAM MOISTURIZING SKIN CREAM 113GM TUBE TOP SCH ×2 (09:05→22:47)
[2021-02-20 14:00] VITALS: BP 119/73
[2021-02-20] MEDS: traMADol 50 MG TAB PO PRN ×2 (16:22→22:49)
[2021-02-20] MEDS ORDERED: OLANZapine 5 MG TAB PO PRN (19:05)
[2021-02-20 19:45] VITALS: BP 116/71
[2021-02-20] MEDS: RAMELTEON 8 MG TAB (ROZEREM) PO SCH (22:46)
[2021-02-20] MEDS: diphenhydrAMINE 50MG CAP PO PRN (22:46)
[2021-02-20] MEDS: NYSTATIN 100,000 UNITS/GM TOPICAL PWD 15 GM TOP PRN (22:49)
[2021-02-21] MEDS: CHOLESTYRAMINE 4 GM PWD PKT PO SCH ×3 (00:12→22:20)
[2021-02-21] MEDS: PERCOCET 5MG/325MG TAB PO PRN ×3 (00:53→20:18)
[2021-02-21] MEDS: IPRATROPIUM 0.5MG/ALBUTEROL 2.5MG INH SOL UD 3ML (DUONEB) NEB SCH ×4 (02:00→20:00)
[2021-02-21] MEDS: diphenhydrAMINE 50MG CAP PO PRN ×2 (03:19→23:38)
[2021-02-21] MEDS: traMADol 50 MG TAB PO PRN ×2 (03:20→23:39)
[2021-02-21 06:00] VITALS: BP 128/60
[2021-02-21] MEDS: SYMBICORT 80/4.5MCG INHALER 6GM INH SCH ×2 (07:14→20:44)
[2021-02-21] MEDS: LEVALBUTEROL HFA 45MCG/ACT 15 GM INHALER INH SCH ×3 (07:14→20:45)
[2021-02-21] MEDS: HumaLOG INSULIN (NovoLOG) PER UNIT SC SCH ×4 (07:30→20:18)
[2021-02-21] MEDS: FIDAXOMICIN 200 MG TAB (DIFICID) PO SCH ×2 (08:53→20:16)
[2021-02-21] MEDS: FIBER-CON 625 MG TAB PO SCH ×2 (08:53→20:16)
[2021-02-21] MEDS: LOMOTIL 2.5MG/0.025MG TABLET PO SCH ×2 (08:53→20:16)
[2021-02-21] MEDS: NYSTATIN 100,000 UNITS/GM TOPICAL PWD 15 GM TOP PRN (08:54)
[2021-02-21] MEDS: FUROSEMIDE 40 MG TAB PO SCH (08:54)
[2021-02-21] MEDS: POTASSIUM CHLORIDE 10% LIQ 20 MEQ/15 ML UDC PO SCH (08:54)
[2021-02-21] MEDS: VANICREAM MOISTURIZING SKIN CREAM 113GM TUBE TOP SCH ×2 (08:55→20:17)
[2021-02-21] MEDS: TRIAMCINOLONE ACET 0.1% OINTMENT 15 GM TOP SCH ×2 (08:56→20:17)
[2021-02-21 09:07] LABS: HEMATOCRIT 32.8 % (36.0-47.0); HEMOGLOBIN 9.7 g/dl (12.0-15.5); MEAN CORPUSCULAR HEMOGLOBIN 25.5 pg (27.0-33.0); MEAN CORPUSCULAR HGB CONC 29.6 g/dl (32.0-36.5); MEAN CORPUSCULAR VOLUME 86.3 fl (80.0-96.0); PLATELET COUNT, AUTOMATED 102 10^3/uL (150-450); WHITE BLOOD COUNT 7.8 10^3/uL (4.0-10.0)
[2021-02-21 09:17] LABS: BLOOD UREA NITROGEN 10 MG/DL (7-18); CALCIUM LEVEL 7.7 MG/DL (8.8-10.2); CARBON DIOXIDE LEVEL 26 MEQ/L (21-32); CHLORIDE LEVEL 102 MEQ/L (98-107); CREATININE FOR GFR 0.76 MG/DL (0.55-1.30); GLOMERULAR FILTRATION RATE > 60.0 (>39); GLUCOSE, FASTING 97 MG/DL (70-100); POTASSIUM SERUM 4.7 MEQ/L (3.5-5.1); SODIUM LEVEL 135 MEQ/L (136-145)
[2021-02-21 14:00] VITALS: BP 109/85
[2021-02-21] MEDS: RAMELTEON 8 MG TAB (ROZEREM) PO SCH (20:16)
[2021-02-21 22:00] VITALS: BP 124/50
[2021-02-22] MEDS: LEVALBUTEROL HFA 45MCG/ACT 15 GM INHALER INH SCH ×4 (01:31→19:38)
[2021-02-22] MEDS: IPRATROPIUM 0.5MG/ALBUTEROL 2.5MG INH SOL UD 3ML (DUONEB) NEB SCH ×4 (01:31→19:38)
[2021-02-22] MEDS: PERCOCET 5MG/325MG TAB PO PRN ×2 (04:29→13:15)
[2021-02-22 06:00] VITALS: BP 112/50
[2021-02-22] MEDS: SYMBICORT 80/4.5MCG INHALER 6GM INH SCH ×2 (07:54→19:37)
[2021-02-22] MEDS: POTASSIUM CHLORIDE 10% LIQ 20 MEQ/15 ML UDC PO SCH (08:08)
[2021-02-22] MEDS: FIDAXOMICIN 200 MG TAB (DIFICID) PO SCH ×2 (08:08→21:15)
[2021-02-22] MEDS: LOMOTIL 2.5MG/0.025MG TABLET PO SCH ×2 (08:08→21:15)
[2021-02-22] MEDS: FUROSEMIDE 40 MG TAB PO SCH (08:08)
[2021-02-22] MEDS: FIBER-CON 625 MG TAB PO SCH ×2 (08:08→21:15)
[2021-02-22] MEDS: VANICREAM MOISTURIZING SKIN CREAM 113GM TUBE TOP SCH ×2 (08:09→21:15)
[2021-02-22] MEDS: TRIAMCINOLONE ACET 0.1% OINTMENT 15 GM TOP SCH ×2 (08:10→21:15)
[2021-02-22 10:40] LABS: HEMATOCRIT 33.8 % (36.0-47.0); HEMOGLOBIN 9.9 g/dl (12.0-15.5); MEAN CORPUSCULAR HEMOGLOBIN 25.4 pg (27.0-33.0); MEAN CORPUSCULAR HGB CONC 29.3 g/dl (32.0-36.5); MEAN CORPUSCULAR VOLUME 86.9 fl (80.0-96.0); PLATELET COUNT, AUTOMATED 122 10^3/uL (150-450); RED BLOOD COUNT 3.89 10^6/uL (4.00-5.40); WHITE BLOOD COUNT 7.6 10^3/uL (4.0-10.0)
[2021-02-22 11:11] LABS: ERYTHROCYTE SEDIMENTATION RATE 49 mm/hr (0-30)
[2021-02-22 11:12] LABS: BLOOD UREA NITROGEN 10 MG/DL (7-18); C REACTIVE PROTEIN QUANTITATIV 4.95 MG/DL (0.00-0.30); CALCIUM LEVEL 8.2 MG/DL (8.8-10.2); CARBON DIOXIDE LEVEL 29 MEQ/L (21-32); CHLORIDE LEVEL 103 MEQ/L (98-107); CREATININE FOR GFR 0.89 MG/DL (0.55-1.30); GLOMERULAR FILTRATION RATE > 60.0 (>39); GLUCOSE, FASTING 123 MG/DL (70-100); POTASSIUM SERUM 5.4 MEQ/L (3.5-5.1); SODIUM LEVEL 135 MEQ/L (136-145)
[2021-02-22] MEDS: HumaLOG INSULIN (NovoLOG) PER UNIT SC SCH ×4 (11:20→20:25)
[2021-02-22] MEDS: CHOLESTYRAMINE 4 GM PWD PKT PO SCH ×2 (11:42→21:13)
[2021-02-22 13:57] VITALS: BP 110/50
[2021-02-22] MEDS ORDERED: CALCIUM GLUCONATE 1,000 MG in D5W MINI-BAG PLUS 100 ML IV ONE (14:00)
[2021-02-22] MEDS ORDERED: CALCIUM CARBONATE 500 MG CHEW U/D PO ONE (14:05)
[2021-02-22] MEDS: diphenhydrAMINE 50MG CAP PO PRN (21:15)
[2021-02-22] MEDS: RAMELTEON 8 MG TAB (ROZEREM) PO SCH (21:15)
[2021-02-22] MEDS: traMADol 50 MG TAB PO PRN (21:16)
[2021-02-22 22:00] VITALS: BP 112/57
[2021-02-23] MEDS: IPRATROPIUM 0.5MG/ALBUTEROL 2.5MG INH SOL UD 3ML (DUONEB) NEB SCH ×4 (04:00→18:51)
[2021-02-23] MEDS: LEVALBUTEROL HFA 45MCG/ACT 15 GM INHALER INH SCH ×4 (04:00→18:51)
[2021-02-23] MEDS: PERCOCET 5MG/325MG TAB PO PRN ×3 (05:19→22:55)
[2021-02-23 06:00] VITALS: BP 120/56
[2021-02-23] MEDS: SYMBICORT 80/4.5MCG INHALER 6GM INH SCH ×2 (07:15→18:52)
[2021-02-23] MEDS: HumaLOG INSULIN (NovoLOG) PER UNIT SC SCH ×4 (07:30→20:37)
[2021-02-23 07:48] LABS: HEMATOCRIT 33.3 % (36.0-47.0); HEMOGLOBIN 10.1 g/dl (12.0-15.5); MEAN CORPUSCULAR HEMOGLOBIN 25.6 pg (27.0-33.0); MEAN CORPUSCULAR HGB CONC 30.3 g/dl (32.0-36.5); MEAN CORPUSCULAR VOLUME 84.3 fl (80.0-96.0); PLATELET COUNT, AUTOMATED 107 10^3/uL (150-450); RED BLOOD COUNT 3.95 10^6/uL (4.00-5.40); WHITE BLOOD COUNT 7.5 10^3/uL (4.0-10.0)
[2021-02-23 08:15] LABS: BLOOD UREA NITROGEN 9 MG/DL (7-18); CALCIUM LEVEL 7.7 MG/DL (8.8-10.2); CARBON DIOXIDE LEVEL 29 MEQ/L (21-32); CHLORIDE LEVEL 100 MEQ/L (98-107); CREATININE FOR GFR 0.68 MG/DL (0.55-1.30); GLOMERULAR FILTRATION RATE > 60.0 (>39); GLUCOSE, FASTING 101 MG/DL (70-100); POTASSIUM SERUM 4.6 MEQ/L (3.5-5.1); SODIUM LEVEL 134 MEQ/L (136-145)
[2021-02-23] MEDS: LOMOTIL 2.5MG/0.025MG TABLET PO SCH ×2 (08:27→20:52)
[2021-02-23] MEDS: POTASSIUM CHLORIDE 10% LIQ 20 MEQ/15 ML UDC PO SCH (08:27)
[2021-02-23] MEDS: FIBER-CON 625 MG TAB PO SCH ×2 (08:27→20:52)
[2021-02-23] MEDS: VANICREAM MOISTURIZING SKIN CREAM 113GM TUBE TOP SCH ×2 (08:27→20:51)
[2021-02-23] MEDS: FIDAXOMICIN 200 MG TAB (DIFICID) PO SCH ×2 (08:27→20:52)
[2021-02-23] MEDS: TRIAMCINOLONE ACET 0.1% OINTMENT 15 GM TOP SCH ×2 (08:28→20:51)
[2021-02-23] MEDS: NYSTATIN 100,000 UNITS/GM TOPICAL PWD 15 GM TOP PRN (08:28)
[2021-02-23] MEDS: FUROSEMIDE 40 MG TAB PO SCH (08:41)
[2021-02-23] MEDS: CHOLESTYRAMINE 4 GM PWD PKT PO SCH ×2 (11:32→20:51)
[2021-02-23 14:00] VITALS: BP 112/65
[2021-02-23] MEDS: traMADol 50 MG TAB PO PRN (19:07)
[2021-02-23] MEDS: diphenhydrAMINE 50MG CAP PO PRN (20:52)
[2021-02-23] MEDS: RAMELTEON 8 MG TAB (ROZEREM) PO SCH (20:52)
[2021-02-23 22:00] VITALS: BP 110/57
[2021-02-24] MEDS: LEVALBUTEROL HFA 45MCG/ACT 15 GM INHALER INH SCH ×4 (02:00→19:21)
[2021-02-24] MEDS: IPRATROPIUM 0.5MG/ALBUTEROL 2.5MG INH SOL UD 3ML (DUONEB) NEB SCH ×4 (02:00→19:21)
[2021-02-24] MEDS: traMADol 50 MG TAB PO PRN ×2 (03:20→14:05)
[2021-02-24 06:00] VITALS: BP 120/58
[2021-02-24] MEDS: SYMBICORT 80/4.5MCG INHALER 6GM INH SCH ×2 (07:25→19:21)
[2021-02-24] MEDS: HumaLOG INSULIN (NovoLOG) PER UNIT SC SCH ×4 (07:30→20:06)
[2021-02-24] MEDS: POTASSIUM CHLORIDE 10% LIQ 20 MEQ/15 ML UDC PO SCH (09:00)
[2021-02-24 09:33] LABS: GLOMERULAR FILTRATION RATE 58.2 (>39); POTASSIUM SERUM 4.2 MEQ/L (3.5-5.1)
[2021-02-24] MEDS: FIDAXOMICIN 200 MG TAB (DIFICID) PO SCH ×2 (10:00→20:53)
[2021-02-24] MEDS: CHOLESTYRAMINE 4 GM PWD PKT PO SCH ×2 (10:00→22:30)
[2021-02-24] MEDS: VANICREAM MOISTURIZING SKIN CREAM 113GM TUBE TOP SCH ×2 (10:01→20:54)
[2021-02-24] MEDS: FIBER-CON 625 MG TAB PO SCH ×2 (10:01→20:53)
[2021-02-24] MEDS: LOMOTIL 2.5MG/0.025MG TABLET PO SCH ×2 (10:01→22:30)
[2021-02-24] MEDS: NYSTATIN 100,000 UNITS/GM TOPICAL PWD 15 GM TOP PRN (10:02)
[2021-02-24] MEDS: TRIAMCINOLONE ACET 0.1% OINTMENT 15 GM TOP SCH ×2 (10:02→20:54)
[2021-02-24] MEDS: FUROSEMIDE 40 MG TAB PO SCH (10:12)
[2021-02-24] MEDS: PERCOCET 5MG/325MG TAB PO PRN ×2 (10:19→18:48)
[2021-02-24 14:00] VITALS: BP 110/60
[2021-02-24] MEDS: diphenhydrAMINE 50MG CAP PO PRN (20:52)
[2021-02-24] MEDS: RAMELTEON 8 MG TAB (ROZEREM) PO SCH (20:53)
[2021-02-24 22:00] VITALS: BP 96/58
[2021-02-25] MEDS: LEVALBUTEROL HFA 45MCG/ACT 15 GM INHALER INH SCH ×4 (03:04→19:51)
[2021-02-25] MEDS: IPRATROPIUM 0.5MG/ALBUTEROL 2.5MG INH SOL UD 3ML (DUONEB) NEB SCH ×4 (03:04→19:50)
[2021-02-25] MEDS ORDERED: NS 500 ML IV ONE (04:20)
[2021-02-25] MEDS: ACETAMINOPHEN 325 MG/10.15 ML UDC NG PRN (04:37)
[2021-02-25] MEDS: diphenhydrAMINE 50MG CAP PO PRN (04:37)
[2021-02-25 06:00] VITALS: BP 93/53
[2021-02-25] MEDS: HumaLOG INSULIN (NovoLOG) PER UNIT SC SCH ×4 (07:30→21:00)
[2021-02-25] MEDS: SYMBICORT 80/4.5MCG INHALER 6GM INH SCH ×2 (07:54→19:50)
[2021-02-25] MEDS: POTASSIUM CHLORIDE 10% LIQ 20 MEQ/15 ML UDC PO SCH (08:12)
[2021-02-25] MEDS: FIDAXOMICIN 200 MG TAB (DIFICID) PO SCH ×2 (08:58→21:43)
[2021-02-25] MEDS: MIDODRINE 5 MG TAB PO SCH ×3 (08:58→16:37)
[2021-02-25] MEDS: LOMOTIL 2.5MG/0.025MG TABLET PO SCH ×2 (08:58→21:49)
[2021-02-25] MEDS: VANICREAM MOISTURIZING SKIN CREAM 113GM TUBE TOP SCH ×2 (08:58→21:44)
[2021-02-25] MEDS: FIBER-CON 625 MG TAB PO SCH ×2 (08:58→21:43)
[2021-02-25] MEDS: TRIAMCINOLONE ACET 0.1% OINTMENT 15 GM TOP SCH ×2 (08:59→21:45)
[2021-02-25] MEDS: CHOLESTYRAMINE 4 GM PWD PKT PO SCH ×2 (11:02→21:43)
[2021-02-25 12:27] VITALS: BP 107/49
[2021-02-25 14:00] VITALS: BP 119/56
[2021-02-25] MEDS: PERCOCET 5MG/325MG TAB PO PRN (16:37)
[2021-02-25] MEDS: RAMELTEON 8 MG TAB (ROZEREM) PO SCH (21:49)
[2021-02-26] MEDS: LEVALBUTEROL HFA 45MCG/ACT 15 GM INHALER INH SCH ×4 (02:00→20:00)
[2021-02-26] MEDS: IPRATROPIUM 0.5MG/ALBUTEROL 2.5MG INH SOL UD 3ML (DUONEB) NEB SCH ×4 (02:00→20:00)
[2021-02-26] MEDS: diphenhydrAMINE 50MG CAP PO PRN ×2 (04:23→09:56)
[2021-02-26 06:00] VITALS: BP 99/56
[2021-02-26] MEDS: HumaLOG INSULIN (NovoLOG) PER UNIT SC SCH ×4 (07:30→21:18)
[2021-02-26] MEDS: SYMBICORT 80/4.5MCG INHALER 6GM INH SCH ×2 (07:32→20:00)
[2021-02-26] MEDS: LOMOTIL 2.5MG/0.025MG TABLET PO SCH ×2 (08:29→21:35)
[2021-02-26] MEDS: MIDODRINE 5 MG TAB PO SCH ×3 (08:29→16:42)
[2021-02-26] MEDS: FIBER-CON 625 MG TAB PO SCH ×2 (08:29→21:33)
[2021-02-26] MEDS: FIDAXOMICIN 200 MG TAB (DIFICID) PO SCH ×2 (08:30→21:34)
[2021-02-26] MEDS: TRIAMCINOLONE ACET 0.1% OINTMENT 15 GM TOP SCH ×2 (08:32→21:33)
[2021-02-26] MEDS: VANICREAM MOISTURIZING SKIN CREAM 113GM TUBE TOP SCH ×2 (08:32→21:33)
[2021-02-26] MEDS: traMADol 50 MG TAB PO PRN ×3 (08:35→23:51)
[2021-02-26 09:17] LABS: BASO # 0.1 10^3/uL (0.0-0.2); BASO % 0.8 % (0.0-1.0); EOS # 0.1 10^3/uL (0.0-0.5); HEMOGLOBIN 11.4 g/dl (12.0-15.5); LYMPH # 2.5 10^3/uL (1.5-5.0); LYMPH % 23.8 % (24.0-44.0); MEAN CORPUSCULAR HEMOGLOBIN 25.8 pg (27.0-33.0); MEAN CORPUSCULAR HGB CONC 30.8 g/dl (32.0-36.5); MEAN CORPUSCULAR VOLUME 83.7 fl (80.0-96.0); MONO # 0.9 10^3/uL (0.0-0.8); MONO % 8.7 % (2.0-8.0); NEUTROPHILS # 6.9 10^3/uL (1.5-8.5); NEUTROPHILS % 65.4 % (36.0-66.0); PLATELET COUNT, AUTOMATED 108 10^3/uL (150-450); RED BLOOD COUNT 4.42 10^6/uL (4.00-5.40); WHITE BLOOD COUNT 10.6 10^3/uL (4.0-10.0)
[2021-02-26 09:47] LABS: CALCIUM LEVEL 7.9 MG/DL (8.8-10.2); GLOMERULAR FILTRATION RATE 58.2 (>39); MAGNESIUM LEVEL 2.3 MG/DL (1.8-2.4); POTASSIUM SERUM 3.8 MEQ/L (3.5-5.1)
[2021-02-26] MEDS: CHOLESTYRAMINE 4 GM PWD PKT PO SCH ×2 (09:56→21:33)
[2021-02-26] MEDS ORDERED: PERCOCET 5MG/325MG TAB PO ONE (10:45)
[2021-02-26] MEDS ORDERED: ALPRAZolam 0.5 MG TAB PO ONE (10:45)
[2021-02-26] MEDS ORDERED: NS 500 ML IV ONE (11:00)
[2021-02-26 14:00] VITALS: BP 103/50
[2021-02-26 15:03] LABS: PREALBUMIN 4.7 MG/DL (20.0-40.0)
[2021-02-26] MEDS: RAMELTEON 8 MG TAB (ROZEREM) PO SCH (21:34)
[2021-02-26 22:00] VITALS: BP 103/49
[2021-02-27] MEDS: LEVALBUTEROL HFA 45MCG/ACT 15 GM INHALER INH SCH ×4 (00:06→19:56)
[2021-02-27] MEDS: IPRATROPIUM 0.5MG/ALBUTEROL 2.5MG INH SOL UD 3ML (DUONEB) NEB SCH ×4 (00:07→19:56)
[2021-02-27] MEDS: PERCOCET 5MG/325MG TAB PO PRN ×5 (02:29→23:15)
[2021-02-27] MEDS: traMADol 50 MG TAB PO PRN ×2 (05:23→14:37)
[2021-02-27 06:00] VITALS: BP 116/49
[2021-02-27 06:25] LABS: BASO # 0.1 10^3/uL (0.0-0.2); BASO % 0.8 % (0.0-1.0); EOS # 0.2 10^3/uL (0.0-0.5); EOS % 2.1 % (0.0-3.0); HEMATOCRIT 35.5 % (36.0-47.0); HEMOGLOBIN 10.6 g/dl (12.0-15.5); LYMPH % 26.2 % (24.0-44.0); MEAN CORPUSCULAR HEMOGLOBIN 25.4 pg (27.0-33.0); MEAN CORPUSCULAR HGB CONC 29.9 g/dl (32.0-36.5); MEAN CORPUSCULAR VOLUME 85.1 fl (80.0-96.0); MONO # 0.6 10^3/uL (0.0-0.8); MONO % 8.4 % (2.0-8.0); NEUTROPHILS # 4.7 10^3/uL (1.5-8.5); NEUTROPHILS % 62.1 % (36.0-66.0); PLATELET COUNT, AUTOMATED 100 10^3/uL (150-450); RED BLOOD COUNT 4.17 10^6/uL (4.00-5.40); WHITE BLOOD COUNT 7.6 10^3/uL (4.0-10.0)
[2021-02-27 06:43] LABS: CALCIUM LEVEL 7.6 MG/DL (8.8-10.2); CREATININE FOR GFR 1.06 MG/DL (0.55-1.30); GLOMERULAR FILTRATION RATE 54.4 (>39); MAGNESIUM LEVEL 2.2 MG/DL (1.8-2.4); POTASSIUM SERUM 3.8 MEQ/L (3.5-5.1)
[2021-02-27] MEDS: HumaLOG INSULIN (NovoLOG) PER UNIT SC SCH ×4 (07:30→21:00)
[2021-02-27] MEDS: diphenhydrAMINE 50MG CAP PO PRN ×4 (07:34→23:15)
[2021-02-27] MEDS: LOMOTIL 2.5MG/0.025MG TABLET PO SCH ×2 (08:42→21:32)
[2021-02-27] MEDS: FIBER-CON 625 MG TAB PO SCH ×2 (08:42→21:32)
[2021-02-27] MEDS: MIDODRINE 5 MG TAB PO SCH ×3 (08:42→17:15)
[2021-02-27] MEDS: FIDAXOMICIN 200 MG TAB (DIFICID) PO SCH ×2 (08:42→21:32)
[2021-02-27] MEDS: TRIAMCINOLONE ACET 0.1% OINTMENT 15 GM TOP SCH ×2 (08:43→21:39)
[2021-02-27] MEDS: VANICREAM MOISTURIZING SKIN CREAM 113GM TUBE TOP SCH ×2 (08:43→21:38)
[2021-02-27] MEDS: SYMBICORT 80/4.5MCG INHALER 6GM INH SCH ×2 (09:03→19:55)
[2021-02-27] MEDS: CHOLESTYRAMINE 4 GM PWD PKT PO SCH ×2 (10:42→21:33)
[2021-02-27 14:00] VITALS: BP 113/49
[2021-02-27] MEDS ORDERED: NS 1,000 ML IV ONE (18:20)
[2021-02-27] MEDS: RAMELTEON 8 MG TAB (ROZEREM) PO SCH (21:32)
[2021-02-27 21:41] VITALS: BP 105/52
[2021-02-28] MEDS: IPRATROPIUM 0.5MG/ALBUTEROL 2.5MG INH SOL UD 3ML (DUONEB) NEB SCH ×4 (02:00→20:00)
[2021-02-28] MEDS: LEVALBUTEROL HFA 45MCG/ACT 15 GM INHALER INH SCH ×4 (02:00→20:00)
[2021-02-28 05:37] VITALS: BP 115/79
[2021-02-28] MEDS: diphenhydrAMINE 50MG CAP PO PRN (05:42)
[2021-02-28] MEDS: PERCOCET 5MG/325MG TAB PO PRN ×3 (05:42→23:09)
[2021-02-28 06:18] LABS: BASO # 0.1 10^3/uL (0.0-0.2); BASO % 0.8 % (0.0-1.0); EOS # 0.1 10^3/uL (0.0-0.5); EOS % 1.3 % (0.0-3.0); HEMATOCRIT 36.7 % (36.0-47.0); LYMPH # 1.9 10^3/uL (1.5-5.0); LYMPH % 24.6 % (24.0-44.0); MEAN CORPUSCULAR HEMOGLOBIN 25.2 pg (27.0-33.0); MEAN CORPUSCULAR VOLUME 84.2 fl (80.0-96.0); MONO # 0.6 10^3/uL (0.0-0.8); MONO % 7.9 % (2.0-8.0); NEUTROPHILS % 64.8 % (36.0-66.0); RED BLOOD COUNT 4.36 10^6/uL (4.00-5.40); WHITE BLOOD COUNT 7.8 10^3/uL (4.0-10.0)
[2021-02-28 06:26] LABS: PLATELET COUNT, AUTOMATED 96 10^3/uL (150-450)
[2021-02-28 06:46] LABS: BLOOD UREA NITROGEN 17 MG/DL (7-18); CALCIUM LEVEL 7.7 MG/DL (8.8-10.2); CARBON DIOXIDE LEVEL 29 MEQ/L (21-32); CHLORIDE LEVEL 100 MEQ/L (98-107); CREATININE FOR GFR 0.95 MG/DL (0.55-1.30); GLOMERULAR FILTRATION RATE > 60.0 (>39); GLUCOSE, FASTING 86 MG/DL (70-100); MAGNESIUM LEVEL 2.2 MG/DL (1.8-2.4); POTASSIUM SERUM 4.7 MEQ/L (3.5-5.1); SODIUM LEVEL 133 MEQ/L (136-145)
[2021-02-28] MEDS: SYMBICORT 80/4.5MCG INHALER 6GM INH SCH ×2 (07:19→20:00)
[2021-02-28] MEDS: HumaLOG INSULIN (NovoLOG) PER UNIT SC SCH ×4 (07:30→21:00)
[2021-02-28] MEDS: MIDODRINE 5 MG TAB PO SCH ×4 (08:00→15:04)
[2021-02-28] MEDS: FIBER-CON 625 MG TAB PO SCH (08:48)
[2021-02-28] MEDS: LOMOTIL 2.5MG/0.025MG TABLET PO SCH (08:48)
[2021-02-28] MEDS: NYSTATIN 100,000 UNITS/GM TOPICAL PWD 15 GM TOP PRN (08:48)
[2021-02-28] MEDS: FIDAXOMICIN 200 MG TAB (DIFICID) PO SCH ×2 (08:48→21:37)
[2021-02-28] MEDS: VANICREAM MOISTURIZING SKIN CREAM 113GM TUBE TOP SCH ×2 (08:52→21:39)
[2021-02-28] MEDS: TRIAMCINOLONE ACET 0.1% OINTMENT 15 GM TOP SCH ×2 (08:53→21:39)
[2021-02-28] MEDS: CHOLESTYRAMINE 4 GM PWD PKT PO SCH (10:58)
[2021-02-28 15:04] VITALS: BP 126/68
[2021-02-28] MEDS: traMADol 50 MG TAB PO PRN (15:16)
[2021-02-28] MEDS: MIRALAX *UNIT DOSE* 17GM PACKET PO SCH ×2 (18:10→21:38)
[2021-02-28 20:00] VITALS: BP 127/73
[2021-02-28] MEDS: RAMELTEON 8 MG TAB (ROZEREM) PO SCH (21:37)
[2021-03-01] MEDS: LEVALBUTEROL HFA 45MCG/ACT 15 GM INHALER INH SCH ×4 (00:02→19:40)
[2021-03-01] MEDS: IPRATROPIUM 0.5MG/ALBUTEROL 2.5MG INH SOL UD 3ML (DUONEB) NEB SCH ×3 (00:03→19:40)
[2021-03-01] MEDS ORDERED: D5W/0.45% SODIUM CHLORIDE 1,000 ML IV SCH (05:00)
[2021-03-01] MEDS: PERCOCET 5MG/325MG TAB PO PRN ×3 (05:04→22:04)
[2021-03-01 06:00] VITALS: BP 127/73
[2021-03-01 06:18] LABS: BASO # 0.1 10^3/uL (0.0-0.2); BASO % 0.7 % (0.0-1.0); EOS % 0.4 % (0.0-3.0); HEMATOCRIT 36.6 % (36.0-47.0); HEMOGLOBIN 11.4 g/dl (12.0-15.5); INR 1.59; LYMPH # 2.2 10^3/uL (1.5-5.0); LYMPH % 23.7 % (24.0-44.0); MEAN CORPUSCULAR HEMOGLOBIN 25.6 pg (27.0-33.0); MEAN CORPUSCULAR HGB CONC 31.1 g/dl (32.0-36.5); MEAN CORPUSCULAR VOLUME 82.1 fl (80.0-96.0); MONO # 0.7 10^3/uL (0.0-0.8); MONO % 8.1 % (2.0-8.0); NEUTROPHILS # 6.1 10^3/uL (1.5-8.5); NEUTROPHILS % 66.7 % (36.0-66.0); PROTHROMBIN TIME 19.3 SECONDS (12.7-14.5); RED BLOOD COUNT 4.46 10^6/uL (4.00-5.40); WHITE BLOOD COUNT 9.1 10^3/uL (4.0-10.0)
[2021-03-01 06:19] LABS: PARTIAL THROMBOPLASTIN TIME 44.8 SECONDS (25.9-37.0)
[2021-03-01 06:31] LABS: BLOOD UREA NITROGEN 17 MG/DL (7-18); CALCIUM LEVEL 7.7 MG/DL (8.8-10.2); CARBON DIOXIDE LEVEL 25 MEQ/L (21-32); CHLORIDE LEVEL 102 MEQ/L (98-107); CREATININE FOR GFR 0.84 MG/DL (0.55-1.30); GLOMERULAR FILTRATION RATE > 60.0 (>39); GLUCOSE, FASTING 106 MG/DL (70-100); MAGNESIUM LEVEL 2.2 MG/DL (1.8-2.4); POTASSIUM SERUM 4.5 MEQ/L (3.5-5.1); SODIUM LEVEL 133 MEQ/L (136-145)
[2021-03-01 06:57] LABS: PLATELET COUNT, AUTOMATED 87 10^3/uL (150-450)
[2021-03-01] MEDS: HumaLOG INSULIN (NovoLOG) PER UNIT SC SCH (07:30)
[2021-03-01] MEDS: SYMBICORT 80/4.5MCG INHALER 6GM INH SCH ×2 (07:40→19:40)
[2021-03-01] MEDS: MIDODRINE 5 MG TAB PO SCH ×3 (09:16→16:28)
[2021-03-01] MEDS: FIDAXOMICIN 200 MG TAB (DIFICID) PO SCH ×2 (09:17→22:13)
[2021-03-01] MEDS: VANICREAM MOISTURIZING SKIN CREAM 113GM TUBE TOP SCH ×2 (09:18→22:05)
[2021-03-01] MEDS: TRIAMCINOLONE ACET 0.1% OINTMENT 15 GM TOP SCH ×2 (09:19→22:05)
[2021-03-01] MEDS ORDERED: BUPIVACAINE HCL 0.25% 30ML VIAL As Ordered ONE ×2 (09:33→10:01)
[2021-03-01] MEDS ORDERED: cefoTEtan DISODIUM 2 GM in D5W MINI-BAG PLUS 50 ML IV ONE (10:10)
[2021-03-01] MEDS ORDERED: cefoTEtan INJ 2GM VIAL (S0074 PER 500MG) As Ordered ONE (10:13)
[2021-03-01] MEDS ORDERED: LIDOCAINE 2% 100MG/5ML SDV (FOR ANES.) As Ordered ONE (10:58)
[2021-03-01] MEDS ORDERED: ROCURONIUM BROMIDE 50 MG/5 ML VIAL As Ordered ONE ×2 (10:58→12:03)
[2021-03-01] MEDS ORDERED: MIDAZOLAM INJ 2MG/2ML VIAL (J2250 PER 1MG) As Ordered ONE (10:58)
[2021-03-01] MEDS ORDERED: dexameTHASONE 4 MG/ML 1ML VIAL (J1100 PER 1MG) As Ordered ONE (10:58)
[2021-03-01] MEDS ORDERED: propofoL 200 MG/20 ML VIAL As Ordered ONE (10:58)
[2021-03-01] MEDS ORDERED: ONDANSETRON 4MG/2ML VIAL As Ordered ONE (10:58)
[2021-03-01] MEDS ORDERED: fentaNYL 100 MCG/2 ML INJECTION (J3010) As Ordered ONE (10:58)
[2021-03-01] MEDS ORDERED: SUGAMMADEX SODIUM 500 MG/5 ML VIAL (BRIDION) As Ordered ONE (10:58)
[2021-03-01] MEDS ORDERED: PHENYLephrine 500MCG 5ML (100MCG/ML) SYRINGE As Ordered ONE (11:08)
[2021-03-01] MEDS ORDERED: HYDROmorphone HCL 2MG/ML 1ML VIAL As Ordered ONE (11:13)
[2021-03-01] MEDS ORDERED: KETOROLAC 60MG 2ML VIAL As Ordered ONE (12:12)
[2021-03-01] MEDS ORDERED: ONDANSETRON 4MG/2ML VIAL IV PRN (14:05)
[2021-03-01] MEDS ORDERED: fentaNYL 100 MCG/2 ML INJECTION (J3010) IV PRN (14:05)
[2021-03-01] MEDS ORDERED: oxyCODONE 5MG TAB PO PRN (14:05)
[2021-03-01] MEDS ORDERED: LR 1,000 ML IV SCH (14:05)
[2021-03-01 15:00] VITALS: BP 115/44
[2021-03-01 15:30] VITALS: BP 108/44
[2021-03-01 17:30] VITALS: BP 124/48
[2021-03-01 18:53] VITALS: BP 101/39
[2021-03-01 22:00] VITALS: BP 102/48
[2021-03-01] MEDS: RAMELTEON 8 MG TAB (ROZEREM) PO SCH (22:03)
[2021-03-01] MEDS: LACTOBACILLUS ACIDOPHILUS CAP (BACID) PO SCH (22:12)
[2021-03-02] MEDS: LEVALBUTEROL HFA 45MCG/ACT 15 GM INHALER INH SCH ×4 (01:18→19:33)
[2021-03-02] MEDS: IPRATROPIUM 0.5MG/ALBUTEROL 2.5MG INH SOL UD 3ML (DUONEB) NEB SCH ×4 (01:18→19:33)
[2021-03-02 02:00] VITALS: BP_SYST 102; BP_SYST 104; BP_DIAS 48; BP_DIAS 56
[2021-03-02] MEDS: PERCOCET 5MG/325MG TAB PO PRN ×5 (02:04→23:54)
[2021-03-02] MEDS: diphenhydrAMINE 50MG CAP PO PRN ×4 (04:55→23:53)
[2021-03-02] MEDS: traMADol 50 MG TAB PO PRN ×2 (05:38→17:16)
[2021-03-02 06:00] VITALS: BP 93/55
[2021-03-02 06:48] LABS: BASO % 0.3 % (0.0-1.0); EOS % 0.2 % (0.0-3.0); HEMATOCRIT 34.2 % (36.0-47.0); HEMOGLOBIN 10.3 g/dl (12.0-15.5); LYMPH # 2.8 10^3/uL (1.5-5.0); LYMPH % 30.4 % (24.0-44.0); MEAN CORPUSCULAR HEMOGLOBIN 25.4 pg (27.0-33.0); MEAN CORPUSCULAR HGB CONC 30.1 g/dl (32.0-36.5); MEAN CORPUSCULAR VOLUME 84.4 fl (80.0-96.0); MONO # 0.8 10^3/uL (0.0-0.8); MONO % 8.3 % (2.0-8.0); NEUTROPHILS # 5.6 10^3/uL (1.5-8.5); NEUTROPHILS % 60.5 % (36.0-66.0); RED BLOOD COUNT 4.05 10^6/uL (4.00-5.40); WHITE BLOOD COUNT 9.2 10^3/uL (4.0-10.0)
[2021-03-02 06:50] LABS: PLATELET COUNT, AUTOMATED 81 10^3/uL (150-450)
[2021-03-02 07:15] LABS: CALCIUM LEVEL 7.8 MG/DL (8.8-10.2); CREATININE FOR GFR 1.06 MG/DL (0.55-1.30); GLOMERULAR FILTRATION RATE 54.4 (>39); MAGNESIUM LEVEL 2.4 MG/DL (1.8-2.4); POTASSIUM SERUM 4.2 MEQ/L (3.5-5.1)
[2021-03-02] MEDS: SYMBICORT 80/4.5MCG INHALER 6GM INH SCH ×2 (07:43→19:33)
[2021-03-02] MEDS: MIDODRINE 5 MG TAB PO SCH ×3 (09:46→17:01)
[2021-03-02] MEDS: TRIAMCINOLONE ACET 0.1% OINTMENT 15 GM TOP SCH ×2 (09:46→21:44)
[2021-03-02] MEDS: VANICREAM MOISTURIZING SKIN CREAM 113GM TUBE TOP SCH ×2 (09:47→21:44)
[2021-03-02] MEDS: FIDAXOMICIN 200 MG TAB (DIFICID) PO SCH ×2 (09:47→23:29)
[2021-03-02] MEDS: LACTOBACILLUS ACIDOPHILUS CAP (BACID) PO SCH ×2 (09:47→17:01)
[2021-03-02 10:00] VITALS: BP 105/50
[2021-03-02 14:00] VITALS: BP 125/71
[2021-03-02 17:01] VITALS: BP 112/55
[2021-03-02] MEDS: RAMELTEON 8 MG TAB (ROZEREM) PO SCH (21:51)
[2021-03-02 22:00] VITALS: BP 122/63
[2021-03-03] MEDS: IPRATROPIUM 0.5MG/ALBUTEROL 2.5MG INH SOL UD 3ML (DUONEB) NEB SCH ×5 (01:45→23:52)
[2021-03-03] MEDS: LEVALBUTEROL HFA 45MCG/ACT 15 GM INHALER INH SCH ×4 (01:45→23:50)
[2021-03-03 06:39] LABS: BASO % 0.4 % (0.0-1.0); EOS # 0.1 10^3/uL (0.0-0.5); EOS % 0.7 % (0.0-3.0); LYMPH # 2.4 10^3/uL (1.5-5.0); LYMPH % 25.3 % (24.0-44.0); MEAN CORPUSCULAR HEMOGLOBIN 25.7 pg (27.0-33.0); MEAN CORPUSCULAR HGB CONC 30.3 g/dl (32.0-36.5); MEAN CORPUSCULAR VOLUME 84.8 fl (80.0-96.0); MONO # 0.7 10^3/uL (0.0-0.8); MONO % 7.2 % (2.0-8.0); NEUTROPHILS # 6.3 10^3/uL (1.5-8.5); NEUTROPHILS % 65.8 % (36.0-66.0); RED BLOOD COUNT 3.89 10^6/uL (4.00-5.40); WHITE BLOOD COUNT 9.5 10^3/uL (4.0-10.0)
[2021-03-03 06:42] LABS: PLATELET COUNT, AUTOMATED 82 10^3/uL (150-450)
[2021-03-03] MEDS: PERCOCET 5MG/325MG TAB PO PRN ×2 (06:45→11:54)
[2021-03-03 07:04] LABS: BLOOD UREA NITROGEN 19 MG/DL (7-18); CALCIUM LEVEL 7.5 MG/DL (8.8-10.2); CARBON DIOXIDE LEVEL 27 MEQ/L (21-32); CHLORIDE LEVEL 104 MEQ/L (98-107); CREATININE FOR GFR 0.85 MG/DL (0.55-1.30); GLOMERULAR FILTRATION RATE > 60.0 (>39); GLUCOSE, FASTING 81 MG/DL (70-100); MAGNESIUM LEVEL 2.2 MG/DL (1.8-2.4); POTASSIUM SERUM 4.7 MEQ/L (3.5-5.1); SODIUM LEVEL 135 MEQ/L (136-145)
[2021-03-03] MEDS: SYMBICORT 80/4.5MCG INHALER 6GM INH SCH ×2 (07:25→18:28)
[2021-03-03] MEDS: LACTOBACILLUS ACIDOPHILUS CAP (BACID) PO SCH ×2 (08:48→17:12)
[2021-03-03] MEDS: MIDODRINE 5 MG TAB PO SCH ×3 (08:48→17:12)
[2021-03-03] MEDS: traMADol 50 MG TAB PO PRN (08:49)
[2021-03-03 08:50] VITALS: BP 111/59
[2021-03-03] MEDS: TRIAMCINOLONE ACET 0.1% OINTMENT 15 GM TOP SCH ×2 (09:52→20:05)
[2021-03-03] MEDS: FIDAXOMICIN 200 MG TAB (DIFICID) PO SCH ×2 (09:52→20:03)
[2021-03-03] MEDS: VANICREAM MOISTURIZING SKIN CREAM 113GM TUBE TOP SCH ×2 (09:53→20:04)
[2021-03-03 11:51] VITALS: BP 109/56
[2021-03-03] MEDS: diphenhydrAMINE 50MG CAP PO PRN ×2 (11:51→22:22)
[2021-03-03] MEDS: ACETAMINOPHEN 325 MG/10.15 ML UDC NG PRN ×2 (12:44→22:22)
[2021-03-03 14:00] VITALS: BP 94/54
[2021-03-03 17:12] VITALS: BP 90/60
[2021-03-03] MEDS: RAMELTEON 8 MG TAB (ROZEREM) PO SCH (20:03)
[2021-03-03] MEDS: NYSTATIN 100,000 UNITS/GM TOPICAL PWD 15 GM TOP PRN (20:04)
[2021-03-03 21:00] VITALS: BP 100/60
[2021-03-04 06:03] VITALS: BP 100/61
[2021-03-04 06:44] LABS: BASO % 0.4 % (0.0-1.0); EOS # 0.1 10^3/uL (0.0-0.5); EOS % 0.9 % (0.0-3.0); HEMATOCRIT 32.9 % (36.0-47.0); HEMOGLOBIN 10.1 g/dl (12.0-15.5); LYMPH # 1.9 10^3/uL (1.5-5.0); LYMPH % 20.7 % (24.0-44.0); MEAN CORPUSCULAR HGB CONC 30.7 g/dl (32.0-36.5); MEAN CORPUSCULAR VOLUME 84.8 fl (80.0-96.0); MONO # 0.6 10^3/uL (0.0-0.8); MONO % 6.8 % (2.0-8.0); NEUTROPHILS # 6.4 10^3/uL (1.5-8.5); NEUTROPHILS % 70.8 % (36.0-66.0); RED BLOOD COUNT 3.88 10^6/uL (4.00-5.40)
[2021-03-04 06:45] LABS: PLATELET COUNT, AUTOMATED 85 10^3/uL (150-450)
[2021-03-04 07:15] LABS: BLOOD UREA NITROGEN 18 MG/DL (7-18); CARBON DIOXIDE LEVEL 29 MEQ/L (21-32); CHLORIDE LEVEL 103 MEQ/L (98-107); GLOMERULAR FILTRATION RATE > 60.0 (>39); GLUCOSE, FASTING 88 MG/DL (70-100); MAGNESIUM LEVEL 2.2 MG/DL (1.8-2.4); SODIUM LEVEL 134 MEQ/L (136-145)
[2021-03-04] MEDS: IPRATROPIUM 0.5MG/ALBUTEROL 2.5MG INH SOL UD 3ML (DUONEB) NEB SCH ×3 (08:00→19:30)
[2021-03-04] MEDS: LEVALBUTEROL HFA 45MCG/ACT 15 GM INHALER INH SCH ×3 (08:00→19:30)
[2021-03-04] MEDS ORDERED: ENOXAPARIN 40MG/0.4ML SYRINGE (J1650 PER 10MG) SC SCH (09:00)
[2021-03-04] MEDS: SYMBICORT 80/4.5MCG INHALER 6GM INH SCH ×2 (09:30→19:29)
[2021-03-04] MEDS: LACTOBACILLUS ACIDOPHILUS CAP (BACID) PO SCH ×2 (09:36→17:35)
[2021-03-04] MEDS: FIDAXOMICIN 200 MG TAB (DIFICID) PO SCH ×2 (09:36→19:54)
[2021-03-04] MEDS: MIDODRINE 5 MG TAB PO SCH ×3 (09:36→16:38)
[2021-03-04] MEDS: PERCOCET 5MG/325MG TAB PO PRN ×3 (09:37→19:54)
[2021-03-04] MEDS: TRIAMCINOLONE ACET 0.1% OINTMENT 15 GM TOP SCH ×2 (09:37→19:54)
[2021-03-04] MEDS: VANICREAM MOISTURIZING SKIN CREAM 113GM TUBE TOP SCH ×2 (09:37→19:54)
[2021-03-04 09:38] VITALS: BP 118/66
[2021-03-04] MEDS: ONDANSETRON 4MG/2ML VIAL IV PRN (11:03)
[2021-03-04 12:37] LABS: BLOOD UREA NITROGEN 17 MG/DL (7-18); CALCIUM LEVEL 7.6 MG/DL (8.8-10.2); CARBON DIOXIDE LEVEL 22 MEQ/L (21-32); CHLORIDE LEVEL 104 MEQ/L (98-107); CREATININE FOR GFR 0.94 MG/DL (0.55-1.30); GLOMERULAR FILTRATION RATE > 60.0 (>39); GLUCOSE, FASTING 129 MG/DL (70-100); POTASSIUM SERUM 4.6 MEQ/L (3.5-5.1); SODIUM LEVEL 135 MEQ/L (136-145)
[2021-03-04 12:38] VITALS: BP 121/52
[2021-03-04] MEDS: ACETAMINOPHEN 325 MG/10.15 ML UDC NG PRN (12:44)
[2021-03-04] MEDS: diphenhydrAMINE 50MG CAP PO PRN ×2 (14:50→19:54)
[2021-03-04 16:28] VITALS: BP 100/42
[2021-03-04] MEDS: traMADol 50 MG TAB PO PRN (17:36)
[2021-03-04] MEDS: RAMELTEON 8 MG TAB (ROZEREM) PO SCH (19:53)
[2021-03-04 22:00] VITALS: BP 110/50
[2021-03-05] MEDS: IPRATROPIUM 0.5MG/ALBUTEROL 2.5MG INH SOL UD 3ML (DUONEB) NEB SCH ×4 (02:00→19:17)
[2021-03-05] MEDS: LEVALBUTEROL HFA 45MCG/ACT 15 GM INHALER INH SCH ×4 (02:00→19:17)
[2021-03-05] MEDS: PERCOCET 5MG/325MG TAB PO PRN ×2 (06:43→15:15)
[2021-03-05] MEDS: diphenhydrAMINE 50MG CAP PO PRN ×3 (06:43→20:38)
[2021-03-05 06:50] VITALS: BP 112/72
[2021-03-05 07:22] LABS: BASO % 0.4 % (0.0-1.0); EOS # 0.1 10^3/uL (0.0-0.5); HEMATOCRIT 37.2 % (36.0-47.0); HEMOGLOBIN 11.1 g/dl (12.0-15.5); LYMPH % 24.6 % (24.0-44.0); MEAN CORPUSCULAR HEMOGLOBIN 25.6 pg (27.0-33.0); MEAN CORPUSCULAR HGB CONC 29.8 g/dl (32.0-36.5); MEAN CORPUSCULAR VOLUME 85.9 fl (80.0-96.0); MONO # 0.5 10^3/uL (0.0-0.8); MONO % 5.8 % (2.0-8.0); NEUTROPHILS # 5.4 10^3/uL (1.5-8.5); NEUTROPHILS % 67.8 % (36.0-66.0); RED BLOOD COUNT 4.33 10^6/uL (4.00-5.40); WHITE BLOOD COUNT 7.9 10^3/uL (4.0-10.0)
[2021-03-05 07:29] LABS: PLATELET COUNT, AUTOMATED 87 10^3/uL (150-450)
[2021-03-05 07:41] LABS: BLOOD UREA NITROGEN 14 MG/DL (7-18); CALCIUM LEVEL 7.7 MG/DL (8.8-10.2); CARBON DIOXIDE LEVEL 25 MEQ/L (21-32); CHLORIDE LEVEL 103 MEQ/L (98-107); GLOMERULAR FILTRATION RATE > 60.0 (>39); GLUCOSE, FASTING 91 MG/DL (70-100); POTASSIUM SERUM 4.5 MEQ/L (3.5-5.1); SODIUM LEVEL 135 MEQ/L (136-145)
[2021-03-05] MEDS: SYMBICORT 80/4.5MCG INHALER 6GM INH SCH ×2 (08:18→19:16)
[2021-03-05] MEDS: LACTOBACILLUS ACIDOPHILUS CAP (BACID) PO SCH ×2 (09:23→17:13)
[2021-03-05] MEDS: FIDAXOMICIN 200 MG TAB (DIFICID) PO SCH ×2 (09:23→21:40)
[2021-03-05] MEDS: MIDODRINE 5 MG TAB PO SCH ×3 (09:23→17:13)
[2021-03-05] MEDS: TRIAMCINOLONE ACET 0.1% OINTMENT 15 GM TOP SCH ×2 (09:24→20:41)
[2021-03-05] MEDS: VANICREAM MOISTURIZING SKIN CREAM 113GM TUBE TOP SCH ×2 (09:24→20:41)
[2021-03-05] MEDS: traMADol 50 MG TAB PO PRN ×2 (11:16→20:39)
[2021-03-05 14:00] VITALS: BP 105/54
[2021-03-05] MEDS: ONDANSETRON 4MG/2ML VIAL IV PRN (20:34)
[2021-03-05] MEDS: RAMELTEON 8 MG TAB (ROZEREM) PO SCH (20:38)
[2021-03-05] MEDS ORDERED: GI COCKTAIL 50ML BTL(HYOSCYAMINE/MAALOX/LIDOCAINE VISCOUS)(1:3:1) PO ONE (21:05)
[2021-03-05] MEDS ORDERED: CALCIUM CARBONATE 500 MG CHEW U/D PO PRN (21:05)
[2021-03-06] MEDS: diphenhydrAMINE 50MG CAP PO PRN ×2 (00:01→18:31)
[2021-03-06] MEDS: PERCOCET 5MG/325MG TAB PO PRN ×3 (01:25→17:25)
[2021-03-06] MEDS: IPRATROPIUM 0.5MG/ALBUTEROL 2.5MG INH SOL UD 3ML (DUONEB) NEB SCH ×4 (02:00→20:00)
[2021-03-06] MEDS: LEVALBUTEROL HFA 45MCG/ACT 15 GM INHALER INH SCH ×4 (02:00→19:25)
[2021-03-06] MEDS: traMADol 50 MG TAB PO PRN ×2 (05:34→13:44)
[2021-03-06 06:00] VITALS: BP 110/60
[2021-03-06] MEDS: SYMBICORT 80/4.5MCG INHALER 6GM INH SCH ×2 (07:20→19:25)
[2021-03-06 07:59] LABS: HEMOGLOBIN 10.7 g/dl (12.0-15.5); MEAN CORPUSCULAR HEMOGLOBIN 26.1 pg (27.0-33.0); MEAN CORPUSCULAR HGB CONC 30.6 g/dl (32.0-36.5); MEAN CORPUSCULAR VOLUME 85.4 fl (80.0-96.0)
[2021-03-06 08:04] LABS: PLATELET COUNT, AUTOMATED 91 10^3/uL (150-450)
[2021-03-06 08:19] LABS: BLOOD UREA NITROGEN 15 MG/DL (7-18); CALCIUM LEVEL 7.8 MG/DL (8.8-10.2); CARBON DIOXIDE LEVEL 28 MEQ/L (21-32); CHLORIDE LEVEL 101 MEQ/L (98-107); CREATININE FOR GFR 0.78 MG/DL (0.55-1.30); GLOMERULAR FILTRATION RATE > 60.0 (>39); GLUCOSE, FASTING 94 MG/DL (70-100); MAGNESIUM LEVEL 2.1 MG/DL (1.8-2.4); POTASSIUM SERUM 4.4 MEQ/L (3.5-5.1); SODIUM LEVEL 134 MEQ/L (136-145)
[2021-03-06] MEDS: VANICREAM MOISTURIZING SKIN CREAM 113GM TUBE TOP SCH ×2 (09:25→20:49)
[2021-03-06] MEDS: FIDAXOMICIN 200 MG TAB (DIFICID) PO SCH (09:25)
[2021-03-06] MEDS: TRIAMCINOLONE ACET 0.1% OINTMENT 15 GM TOP SCH ×2 (09:25→20:50)
[2021-03-06] MEDS: LACTOBACILLUS ACIDOPHILUS CAP (BACID) PO SCH ×2 (09:25→17:21)
[2021-03-06] MEDS: MIDODRINE 5 MG TAB PO SCH ×3 (09:25→17:22)
[2021-03-06 14:00] VITALS: BP 117/59
[2021-03-06] MEDS: RAMELTEON 8 MG TAB (ROZEREM) PO SCH (20:50)
[2021-03-06 22:00] VITALS: BP 128/60
[2021-03-07] MEDS: diphenhydrAMINE 50MG CAP PO PRN (01:14)
[2021-03-07] MEDS: PERCOCET 5MG/325MG TAB PO PRN ×3 (01:15→23:12)
[2021-03-07] MEDS: LEVALBUTEROL HFA 45MCG/ACT 15 GM INHALER INH SCH ×5 (01:37→19:30)
[2021-03-07 06:00] VITALS: BP 95/55
[2021-03-07 06:22] LABS: HEMOGLOBIN 9.8 g/dl (12.0-15.5); MEAN CORPUSCULAR HEMOGLOBIN 25.7 pg (27.0-33.0); MEAN CORPUSCULAR HGB CONC 29.7 g/dl (32.0-36.5); MEAN CORPUSCULAR VOLUME 86.6 fl (80.0-96.0); RED BLOOD COUNT 3.81 10^6/uL (4.00-5.40); WHITE BLOOD COUNT 8.4 10^3/uL (4.0-10.0)
[2021-03-07 06:24] LABS: PLATELET COUNT, AUTOMATED 89 10^3/uL (150-450)
[2021-03-07 06:50] LABS: BLOOD UREA NITROGEN 16 MG/DL (7-18); CALCIUM LEVEL 7.7 MG/DL (8.8-10.2); CARBON DIOXIDE LEVEL 26 MEQ/L (21-32); CHLORIDE LEVEL 103 MEQ/L (98-107); CREATININE FOR GFR 0.72 MG/DL (0.55-1.30); GLOMERULAR FILTRATION RATE > 60.0 (>39); GLUCOSE, FASTING 88 MG/DL (70-100); MAGNESIUM LEVEL 2.2 MG/DL (1.8-2.4); POTASSIUM SERUM 4.6 MEQ/L (3.5-5.1); SODIUM LEVEL 136 MEQ/L (136-145)
[2021-03-07 06:53] VITALS: BP 104/62
[2021-03-07] MEDS: IPRATROPIUM 0.5MG/ALBUTEROL 2.5MG INH SOL UD 3ML (DUONEB) NEB SCH ×4 (07:11→19:31)
[2021-03-07] MEDS: SYMBICORT 80/4.5MCG INHALER 6GM INH SCH ×2 (07:11→19:31)
[2021-03-07] MEDS: VANICREAM MOISTURIZING SKIN CREAM 113GM TUBE TOP SCH ×2 (09:48→20:55)
[2021-03-07] MEDS: MIDODRINE 5 MG TAB PO SCH ×3 (09:48→17:03)
[2021-03-07] MEDS: TRIAMCINOLONE ACET 0.1% OINTMENT 15 GM TOP SCH ×2 (09:49→20:54)
[2021-03-07] MEDS: LACTOBACILLUS ACIDOPHILUS CAP (BACID) PO SCH ×2 (09:49→17:02)
[2021-03-07 14:00] VITALS: BP 98/55
[2021-03-07] MEDS: RAMELTEON 8 MG TAB (ROZEREM) PO SCH (20:55)
[2021-03-07 22:00] VITALS: BP 106/53
[2021-03-08] MEDS: LEVALBUTEROL HFA 45MCG/ACT 15 GM INHALER INH SCH ×4 (01:39→19:30)
[2021-03-08] MEDS: IPRATROPIUM 0.5MG/ALBUTEROL 2.5MG INH SOL UD 3ML (DUONEB) NEB SCH ×4 (02:00→20:00)
[2021-03-08] MEDS: PERCOCET 5MG/325MG TAB PO PRN ×2 (04:56→22:05)
[2021-03-08 06:00] VITALS: BP 101/51
[2021-03-08 07:12] LABS: HEMATOCRIT 32.4 % (36.0-47.0); HEMOGLOBIN 9.8 g/dl (12.0-15.5); MEAN CORPUSCULAR HGB CONC 30.2 g/dl (32.0-36.5); MEAN CORPUSCULAR VOLUME 85.9 fl (80.0-96.0); PLATELET COUNT, AUTOMATED 112 10^3/uL (150-450); RED BLOOD COUNT 3.77 10^6/uL (4.00-5.40); WHITE BLOOD COUNT 8.2 10^3/uL (4.0-10.0)
[2021-03-08] MEDS: SYMBICORT 80/4.5MCG INHALER 6GM INH SCH ×2 (07:29→19:30)
[2021-03-08 07:37] LABS: BLOOD UREA NITROGEN 14 MG/DL (7-18); CALCIUM LEVEL 7.8 MG/DL (8.8-10.2); CARBON DIOXIDE LEVEL 26 MEQ/L (21-32); CHLORIDE LEVEL 104 MEQ/L (98-107); CREATININE FOR GFR 0.77 MG/DL (0.55-1.30); GLOMERULAR FILTRATION RATE > 60.0 (>39); GLUCOSE, FASTING 117 MG/DL (70-100); SODIUM LEVEL 137 MEQ/L (136-145)
[2021-03-08] MEDS: VANICREAM MOISTURIZING SKIN CREAM 113GM TUBE TOP SCH ×2 (08:32→20:56)
[2021-03-08] MEDS: diphenhydrAMINE 50MG CAP PO PRN (08:32)
[2021-03-08] MEDS: LACTOBACILLUS ACIDOPHILUS CAP (BACID) PO SCH ×2 (08:32→18:24)
[2021-03-08] MEDS: MIDODRINE 5 MG TAB PO SCH ×3 (08:32→18:24)
[2021-03-08] MEDS: TRIAMCINOLONE ACET 0.1% OINTMENT 15 GM TOP SCH ×2 (08:33→21:00)
[2021-03-08] MEDS: RAMELTEON 8 MG TAB (ROZEREM) PO SCH (20:56)
[2021-03-09] MEDS: IPRATROPIUM 0.5MG/ALBUTEROL 2.5MG INH SOL UD 3ML (DUONEB) NEB SCH ×4 (02:00→19:40)
[2021-03-09] MEDS: LEVALBUTEROL HFA 45MCG/ACT 15 GM INHALER INH SCH ×4 (02:00→19:40)
[2021-03-09 06:00] VITALS: BP 130/70
[2021-03-09 06:27] LABS: HEMATOCRIT 34.6 % (36.0-47.0); HEMOGLOBIN 10.3 g/dl (12.0-15.5); MEAN CORPUSCULAR HEMOGLOBIN 25.8 pg (27.0-33.0); MEAN CORPUSCULAR HGB CONC 29.8 g/dl (32.0-36.5); MEAN CORPUSCULAR VOLUME 86.5 fl (80.0-96.0); PLATELET COUNT, AUTOMATED 117 10^3/uL (150-450); WHITE BLOOD COUNT 6.8 10^3/uL (4.0-10.0)
[2021-03-09 06:59] LABS: BLOOD UREA NITROGEN 13 MG/DL (7-18); CARBON DIOXIDE LEVEL 27 MEQ/L (21-32); CHLORIDE LEVEL 103 MEQ/L (98-107); CREATININE FOR GFR 0.69 MG/DL (0.55-1.30); GLOMERULAR FILTRATION RATE > 60.0 (>39); GLUCOSE, FASTING 100 MG/DL (70-100); POTASSIUM SERUM 3.9 MEQ/L (3.5-5.1); SODIUM LEVEL 134 MEQ/L (136-145)
[2021-03-09] MEDS: SYMBICORT 80/4.5MCG INHALER 6GM INH SCH ×2 (08:33→19:39)
[2021-03-09] MEDS: MIDODRINE 5 MG TAB PO SCH ×3 (09:41→16:19)
[2021-03-09] MEDS: LACTOBACILLUS ACIDOPHILUS CAP (BACID) PO SCH ×2 (09:41→18:49)
[2021-03-09] MEDS: VANICREAM MOISTURIZING SKIN CREAM 113GM TUBE TOP SCH ×2 (09:42→21:30)
[2021-03-09] MEDS: LACRILUBE (AKWA TEARS) OPHTH OINT 3.5 GM OU PRN (09:42)
[2021-03-09] MEDS: TRIAMCINOLONE ACET 0.1% OINTMENT 15 GM TOP SCH ×2 (09:44→21:30)
[2021-03-09] MEDS: traMADol 50 MG TAB PO PRN ×2 (11:18→16:19)
[2021-03-09] MEDS: diphenhydrAMINE 50MG CAP PO PRN (16:18)
[2021-03-09] MEDS: RAMELTEON 8 MG TAB (ROZEREM) PO SCH (21:29)
[2021-03-10] MEDS: IPRATROPIUM 0.5MG/ALBUTEROL 2.5MG INH SOL UD 3ML (DUONEB) NEB SCH ×3 (03:53→14:00)
[2021-03-10] MEDS: LEVALBUTEROL HFA 45MCG/ACT 15 GM INHALER INH SCH ×3 (03:53→14:00)
[2021-03-10] MEDS: PERCOCET 5MG/325MG TAB PO PRN ×3 (04:17→20:13)
[2021-03-10 06:00] VITALS: BP 141/91
[2021-03-10] MEDS: diphenhydrAMINE 50MG CAP PO PRN ×2 (06:15→17:34)
[2021-03-10 06:36] LABS: HEMATOCRIT 36.5 % (36.0-47.0); HEMOGLOBIN 10.9 g/dl (12.0-15.5); MEAN CORPUSCULAR HEMOGLOBIN 26.1 pg (27.0-33.0); MEAN CORPUSCULAR HGB CONC 29.9 g/dl (32.0-36.5); MEAN CORPUSCULAR VOLUME 87.5 fl (80.0-96.0); RED BLOOD COUNT 4.17 10^6/uL (4.00-5.40); WHITE BLOOD COUNT 6.7 10^3/uL (4.0-10.0)
[2021-03-10 06:38] LABS: PLATELET COUNT, AUTOMATED 91 10^3/uL (150-450)
[2021-03-10 07:12] LABS: BLOOD UREA NITROGEN 14 MG/DL (7-18); CALCIUM LEVEL 7.8 MG/DL (8.8-10.2); CARBON DIOXIDE LEVEL 26 MEQ/L (21-32); CHLORIDE LEVEL 103 MEQ/L (98-107); GLOMERULAR FILTRATION RATE > 60.0 (>39); GLUCOSE, FASTING 104 MG/DL (70-100); MAGNESIUM LEVEL 2.1 MG/DL (1.8-2.4); POTASSIUM SERUM 4.5 MEQ/L (3.5-5.1); SODIUM LEVEL 135 MEQ/L (136-145)
[2021-03-10] MEDS: traMADol 50 MG TAB PO PRN ×2 (09:05→17:29)
[2021-03-10] MEDS: TRIAMCINOLONE ACET 0.1% OINTMENT 15 GM TOP SCH ×2 (09:08→20:14)
[2021-03-10] MEDS: LACTOBACILLUS ACIDOPHILUS CAP (BACID) PO SCH ×2 (09:08→17:27)
[2021-03-10] MEDS: MIDODRINE 5 MG TAB PO SCH ×3 (09:09→17:32)
[2021-03-10] MEDS: VANICREAM MOISTURIZING SKIN CREAM 113GM TUBE TOP SCH ×2 (09:09→20:13)
[2021-03-10] MEDS: SYMBICORT 80/4.5MCG INHALER 6GM INH SCH ×2 (09:13→19:57)
[2021-03-10] MEDS: RAMELTEON 8 MG TAB (ROZEREM) PO SCH (20:12)
[2021-03-11] MEDS: diphenhydrAMINE 50MG CAP PO PRN ×3 (02:34→20:48)
[2021-03-11 05:00] VITALS: BP 112/55
[2021-03-11] MEDS: SYMBICORT 80/4.5MCG INHALER 6GM INH SCH ×3 (09:12→20:48)
[2021-03-11] MEDS: LACTOBACILLUS ACIDOPHILUS CAP (BACID) PO SCH ×2 (09:59→16:54)
[2021-03-11] MEDS: MIDODRINE 5 MG TAB PO SCH ×3 (10:00→17:00)
[2021-03-11] MEDS: VANICREAM MOISTURIZING SKIN CREAM 113GM TUBE TOP SCH ×2 (10:00→20:49)
[2021-03-11] MEDS: TRIAMCINOLONE ACET 0.1% OINTMENT 15 GM TOP SCH ×2 (10:00→20:49)
[2021-03-11] MEDS: traMADol 50 MG TAB PO PRN ×2 (10:00→16:54)
[2021-03-11] MEDS: PERCOCET 5MG/325MG TAB PO PRN ×2 (13:23→20:50)
[2021-03-11] MEDS: RAMELTEON 8 MG TAB (ROZEREM) PO SCH (20:48)
[2021-03-12] MEDS: PERCOCET 5MG/325MG TAB PO PRN ×2 (00:40→05:38)
[2021-03-12] MEDS: diphenhydrAMINE 50MG CAP PO PRN ×3 (00:40→11:20)
[2021-03-12 05:45] VITALS: BP 83/54
[2021-03-12] MEDS: MIDODRINE 5 MG TAB PO SCH ×3 (06:03→16:00)
[2021-03-12] MEDS: ACETAMINOPHEN 325 MG/10.15 ML UDC NG PRN (06:04)
[2021-03-12 07:44] VITALS: BP 102/50
[2021-03-12] MEDS: SYMBICORT 80/4.5MCG INHALER 6GM INH SCH ×2 (08:41→20:30)
[2021-03-12] MEDS: TRIAMCINOLONE ACET 0.1% OINTMENT 15 GM TOP SCH ×2 (09:25→20:07)
[2021-03-12] MEDS: LACTOBACILLUS ACIDOPHILUS CAP (BACID) PO SCH ×2 (09:25→17:29)
[2021-03-12] MEDS: VANICREAM MOISTURIZING SKIN CREAM 113GM TUBE TOP SCH ×2 (09:26→20:08)
[2021-03-12] MEDS: ACETAMINOPHEN TAB 650MG DOSE (2X325MG) PO PRN ×2 (15:49→20:07)
[2021-03-12 17:12] VITALS: BP 118/56
[2021-03-12] MEDS: NYSTATIN 100,000 UNITS/GM TOPICAL PWD 15 GM TOP PRN (20:07)
[2021-03-12] MEDS: RAMELTEON 8 MG TAB (ROZEREM) PO SCH (20:07)
[2021-03-13] MEDS: PERCOCET 5MG/325MG TAB PO PRN ×3 (02:30→16:09)
[2021-03-13] MEDS: diphenhydrAMINE 50MG CAP PO PRN (02:30)
[2021-03-13] MEDS: ACETAMINOPHEN TAB 650MG DOSE (2X325MG) PO PRN ×2 (05:21→23:29)
[2021-03-13 06:00] VITALS: BP 121/58
[2021-03-13] MEDS: MIDODRINE 5 MG TAB PO SCH ×2 (08:00→12:00)
[2021-03-13] MEDS: SYMBICORT 80/4.5MCG INHALER 6GM INH SCH ×2 (08:52→20:25)
[2021-03-13] MEDS: VANICREAM MOISTURIZING SKIN CREAM 113GM TUBE TOP SCH ×2 (09:51→20:20)
[2021-03-13] MEDS: LACTOBACILLUS ACIDOPHILUS CAP (BACID) PO SCH ×2 (09:51→17:36)
[2021-03-13] MEDS: TRIAMCINOLONE ACET 0.1% OINTMENT 15 GM TOP SCH ×2 (09:51→20:20)
[2021-03-13] MEDS: RAMELTEON 8 MG TAB (ROZEREM) PO SCH (20:18)
[2021-03-14 06:00] VITALS: BP 126/59
[2021-03-14] MEDS: SYMBICORT 80/4.5MCG INHALER 6GM INH SCH ×2 (07:35→19:41)
[2021-03-14] MEDS: TRIAMCINOLONE ACET 0.1% OINTMENT 15 GM TOP SCH ×2 (08:38→20:57)
[2021-03-14] MEDS: traMADol 50 MG TAB PO PRN (08:39)
[2021-03-14] MEDS: LACTOBACILLUS ACIDOPHILUS CAP (BACID) PO SCH ×2 (08:39→17:16)
[2021-03-14] MEDS: VANICREAM MOISTURIZING SKIN CREAM 113GM TUBE TOP SCH ×2 (08:39→20:57)
[2021-03-14] MEDS ORDERED: RISATAB3 PO (09:46)
[2021-03-14] MEDS: PERCOCET 5MG/325MG TAB PO PRN (11:57)
[2021-03-14] MEDS ORDERED: ONDANSETRON 4 MG TAB PO PRN (14:15)
[2021-03-14] MEDS: RAMELTEON 8 MG TAB (ROZEREM) PO SCH (20:56)
[2021-03-15] MEDS: PERCOCET 5MG/325MG TAB PO PRN ×3 (02:15→22:57)
[2021-03-15] MEDS ORDERED: PERCOCET 5MG/325MG TAB PO ONE (05:00)
[2021-03-15 06:00] VITALS: BP 122/59
[2021-03-15] MEDS: SYMBICORT 80/4.5MCG INHALER 6GM INH SCH ×2 (07:40→20:37)
[2021-03-15] MEDS: VANICREAM MOISTURIZING SKIN CREAM 113GM TUBE TOP SCH ×2 (09:00→21:00)
[2021-03-15] MEDS: LACTOBACILLUS ACIDOPHILUS CAP (BACID) PO SCH ×2 (09:52→18:29)
[2021-03-15] MEDS: TRIAMCINOLONE ACET 0.1% OINTMENT 15 GM TOP SCH ×2 (09:53→21:06)
[2021-03-15 11:06] LABS: HEMATOCRIT 35.2 % (36.0-47.0); HEMOGLOBIN 10.4 g/dl (12.0-15.5); MEAN CORPUSCULAR HEMOGLOBIN 26.1 pg (27.0-33.0); MEAN CORPUSCULAR HGB CONC 29.5 g/dl (32.0-36.5); MEAN CORPUSCULAR VOLUME 88.2 fl (80.0-96.0); PLATELET COUNT, AUTOMATED 113 10^3/uL (150-450); RED BLOOD COUNT 3.99 10^6/uL (4.00-5.40)
[2021-03-15 11:27] LABS: BLOOD UREA NITROGEN 15 MG/DL (7-18); CALCIUM LEVEL 7.9 MG/DL (8.8-10.2); CARBON DIOXIDE LEVEL 27 MEQ/L (21-32); CHLORIDE LEVEL 105 MEQ/L (98-107); CREATININE FOR GFR 0.62 MG/DL (0.55-1.30); GLOMERULAR FILTRATION RATE > 60.0 (>39); GLUCOSE, FASTING 122 MG/DL (70-100); POTASSIUM SERUM 4.2 MEQ/L (3.5-5.1); SODIUM LEVEL 137 MEQ/L (136-145)
[2021-03-15] MEDS: ALBUTEROL 90 MCG/ACT 8GM HFA INHALER INH PRN (20:38)
[2021-03-15] MEDS: RAMELTEON 8 MG TAB (ROZEREM) PO SCH (21:05)
[2021-03-15] MEDS ORDERED: IPRATROPIUM 0.5MG/ALBUTEROL 2.5MG INH SOL UD 3ML (DUONEB) NEB PRN (22:35)
[2021-03-15] MEDS: diphenhydrAMINE 50MG CAP PO PRN (22:56)
[2021-03-16 06:00] VITALS: BP 118/60
[2021-03-16] MEDS: SYMBICORT 80/4.5MCG INHALER 6GM INH SCH (06:17)
[2021-03-16 07:10] LABS: BASO % 0.6 % (0.0-1.0); EOS # 0.2 10^3/uL (0.0-0.5); HEMATOCRIT 33.5 % (36.0-47.0); HEMOGLOBIN 9.9 g/dl (12.0-15.5); LYMPH # 2.9 10^3/uL (1.5-5.0); LYMPH % 52.6 % (24.0-44.0); MEAN CORPUSCULAR HEMOGLOBIN 25.8 pg (27.0-33.0); MEAN CORPUSCULAR HGB CONC 29.6 g/dl (32.0-36.5); MEAN CORPUSCULAR VOLUME 87.2 fl (80.0-96.0); MONO # 0.4 10^3/uL (0.0-0.8); MONO % 8.1 % (2.0-8.0); NEUTROPHILS # 1.9 10^3/uL (1.5-8.5); NEUTROPHILS % 35.5 % (36.0-66.0); PLATELET COUNT, AUTOMATED 131 10^3/uL (150-450); RED BLOOD COUNT 3.84 10^6/uL (4.00-5.40); WHITE BLOOD COUNT 5.4 10^3/uL (4.0-10.0)
[2021-03-16 07:29] LABS: BLOOD UREA NITROGEN 12 MG/DL (7-18); CALCIUM LEVEL 7.8 MG/DL (8.8-10.2); CARBON DIOXIDE LEVEL 30 MEQ/L (21-32); CHLORIDE LEVEL 106 MEQ/L (98-107); CREATININE FOR GFR 0.54 MG/DL (0.55-1.30); GLOMERULAR FILTRATION RATE > 60.0 (>39); GLUCOSE, FASTING 96 MG/DL (70-100); POTASSIUM SERUM 4.5 MEQ/L (3.5-5.1); SODIUM LEVEL 140 MEQ/L (136-145)
[2021-03-16] MEDS: LACTOBACILLUS ACIDOPHILUS CAP (BACID) PO SCH (10:24)
[2021-03-16] MEDS: TRIAMCINOLONE ACET 0.1% OINTMENT 15 GM TOP SCH (10:25)
[2021-03-16] MEDS: VANICREAM MOISTURIZING SKIN CREAM 113GM TUBE TOP SCH (10:25)
[2021-03-16] MEDS: ACETAMINOPHEN TAB 650MG DOSE (2X325MG) PO PRN (12:16)
== END 2021-03-16 13:45 | DRG 853 ==
LOC: M PCU 02-02 00:45 → EEVIPCON 02-02 00:45 → M PCU 02-11 06:53 → M MSPAV 02-14 16:20
PROVIDERS: ADMIT Family Medicine; ATTEND Internal Medicine
PROC: 02HV33Z Insertion of Infusion Device into Superior Vena Cava, Percutaneous Approach (ICD-10-PCS; 2021-02-02)
PROC: 0BH17EZ Insertion of Endotracheal Airway into Trachea, Via Natural or Artificial Opening (ICD-10-PCS; 2021-02-02)
PROC: 04HY32Z Insertion of Monitoring Device into Lower Artery, Percutaneous Approach (ICD-10-PCS; 2021-02-02)
PROC: 5A1955Z Respiratory Ventilation, Greater than 96 Consecutive Hours (ICD-10-PCS; 2021-02-02)
PROC: 0KBH0ZZ Excision of Right Thorax Muscle, Open Approach (ICD-10-PCS; principal; 2021-02-02 05:08)
PROC: 30233N1 Transfusion of Nonautologous Red Blood Cells into Peripheral Vein, Percutaneous Approach (ICD-10-PCS; 2021-02-06)
PROC: 0KD Muscles, Extraction (ICD-10-PCS; 2021-02-08)
PROC: 0JB70ZZ Excision of Back Subcutaneous Tissue and Fascia, Open Approach (ICD-10-PCS; 2021-02-11)
PROC: 02HV33Z Insertion of Infusion Device into Superior Vena Cava, Percutaneous Approach (ICD-10-PCS; 2021-02-11)
PROC: 0D1N4J4 Bypass Sigmoid Colon to Cutaneous with Synthetic Substitute, Percutaneous Endoscopic Approach (ICD-10-PCS; 2021-03-01)
PROC: 0DBM4ZZ Excision of Descending Colon, Percutaneous Endoscopic Approach (ICD-10-PCS; 2021-03-01)
PROC: 8E0W4CZ Robotic Assisted Procedure of Trunk Region, Percutaneous Endoscopic Approach (ICD-10-PCS; 2021-03-01)
DX: A41.9 Sepsis, unspecified organism (principal); M72.6 Necrotizing fasciitis; J12.2 Parainfluenza virus pneumonia; R65.21 Severe sepsis with septic shock; J96.21 Acute and chronic respiratory failure with hypoxia; G93.41 Metabolic encephalopathy; A48.3 Toxic shock syndrome; L89.154 Pressure ulcer of sacral region, stage 4; N17.9 Acute kidney failure, unspecified; E87.0 Hyperosmolality and hypernatremia; J44.0 Chronic obstructive pulmonary disease with (acute) lower respiratory infection; Z68.41 Body mass index [BMI] 40.0-44.9, adult; M86.18 Other acute osteomyelitis, other site; A04.72 Enterocolitis due to Clostridium difficile, not specified as recurrent; I50.32 Chronic diastolic (congestive) heart failure; F32.A Depression, unspecified; F41.9 Anxiety disorder, unspecified; J30.2 Other seasonal allergic rhinitis; G89.29 Other chronic pain; E86.0 Dehydration; I48.91 Unspecified atrial fibrillation; I87.2 Venous insufficiency (chronic) (peripheral); I89.0 Lymphedema, not elsewhere classified; R68.0 Hypothermia, not associated with low environmental temperature; B37.3 Candidiasis of vulva and vagina; D63.8 Anemia in other chronic diseases classified elsewhere; K42.9 Umbilical hernia without obstruction or gangrene; E66.01 Morbid (severe) obesity due to excess calories; E87.6 Hypokalemia; L27.0 Generalized skin eruption due to drugs and medicaments taken internally; T36.95XA Adverse effect of unspecified systemic antibiotic, initial encounter; D69.6 Thrombocytopenia, unspecified; N76.89 Other specified inflammation of vagina and vulva; D50.0 Iron deficiency anemia secondary to blood loss (chronic); Z79.891 Long term (current) use of opiate analgesic; Z99.81 Dependence on supplemental oxygen; Z79.899 Other long term (current) drug therapy